=== PATIENT | male | born 1960 | race Caucasian/White ===

== ENCOUNTER 2017-09-21 21:57 | Observation (INO) | payer OTHER ==
[~2017-09-21] VITALS: Ht 177.8 cm; Wt 105.0 kg
[2017-09-21 22:20] VITALS: BP 119/80; PULSE 106; RESP 18; TEMP 98.4; O2SAT 96
--- NOTE | 2017-09-21 22:27 | PD ---
HPI Chief Complaint: dizzy Time Seen by Provider: 22:24 Travel History International Travel<30 days: Yes Contact w/Intl Traveler<30days: Yes Name of Country Traveled to: [place] Traveled to known affect area: No History of Present Illness HPI PATIENT WHILE ON PLANE HERE TO VISIT SON IN [place], FELT DIZZY AND HANDS WENT "WHITE" AND HE NEARLY PASSED OUT.... 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 PER PT HE HAD A CATH A FEW WEEKS AGO AND HAS CD WITH HIM. CURRENTLY SYMPTOMS RESOLVED EXCEPT, RT SHOULDER PRESSURE, ONGOING FOR PAST 4 HOURS, NONRAD, NONSHARP, of note patient lives in [place] but has been flying back and forth between [facility] and [place]...pt apparently had cath in [place], where he was found to have a patent stent but found to have schemic cm and possibly needs an aicd? PCP IN [place] PMHX: CHF, 20% EF, PFSH Social History Tobacco Use: No Allergies-Medications (Allergen,Severity, Reaction): Coded Allergies: No Known Allergies (Verified Allergy, Unknown, 09/22/17) Uncoded Allergies: nka (Allergy, Unknown, 07/25/03) Reported Meds & Prescriptions Reported Meds & Active Scripts Active Review of Systems Except as stated in HPI: all other systems reviewed are Neg General / Constitutional: No: Fever Eyes: No: Visual changes HENT: No: Headaches Cardiovascular: No: Chest Pain or Discomfort Respiratory: Positive: Shortness of Breath Gastrointestinal: No: Abdominal Pain Genitourinary: No: Dysuria Musculoskeletal: No: Pain Skin: No Rash Neurologic: No: Weakness Psychiatric: No: Depression Endocrine: No: Polydipsia Hematologic/Lymphatic: No: Easy Bruising Physical Exam Narrative GENERAL: SKIN: Warm and dry. HEAD: Atraumatic. Normocephalic. EYES: Pupils equal and round. No scleral icterus. No injection or drainage. ENT: No nasal bleeding or discharge. Mucous membranes pink and moist. NECK: Trachea midline. No JVD. CARDIOVASCULAR: Regular rate and rhythm. RESPIRATORY: No accessory muscle use. Clear to auscultation. Breath sounds equal bilaterally. GASTROINTESTINAL: Abdomen soft, non-tender, nondistended. MUSCULOSKELETAL: Extremities without clubbing, cyanosis, or edema. No obvious deformities. NEUROLOGICAL: Awake and alert. No obvious cranial nerve deficits. Motor grossly within normal limits. Five out of 5 muscle strength in the arms and legs. Normal speech. PSYCHIATRIC: Appropriate mood and affect; insight and judgment normal. Data Data Last Documented VS Orders Orders Complete Blood Count With Diff (09/21/17:29) Comprehensive Metabolic Panel (09/21/17:29) Troponin I (09/21/17:29) B-Type Natriuretic Peptide (09/21/17:) Prothrombin Time / Inr (Pt) (09/21/17) Act Partial Throm Time (Ptt) (09/21/17:) Lipase (09/21/17:) Chest, Single Ap (09/21/17:) Iv Access Insert/Monitor (09/21/17) Ecg Monitoring (09/21/17:) Admit Order (Ed Use Only) (09/21/17 23:20) Activity Bed Rest With Brp (09/21/17 23:20) Vital Signs (Adult) Q4H (09/21/17 23:20) Cardiac Rhythm .As Directed (09/21/17 23:20) Notify Dr: Other .PRN (09/21/17 23:20) Notify DrSilver Parameters (09/21/17 23:20) Resp Oxygen Nasal Cannula (09/21/17 ) Ckmb (Isoenzyme) Profile (09/21/17 23:20) Ckmb (Isoenzyme) Profile (09/22/17 02:20) Troponin I (09/21/17 23:20) Troponin I (09/22/17 02:20) Electrocardiogram (09/21/17 23:20) Electrocardiogram (09/22/17 02:20) ^ Obtain (09/21/17 23:20) Sodium Chlor 0.9% 1000 Ml Inj (Ns 1000 M (09/21/17 23:20) Ondansetron Inj (Zofran Inj) (09/21/17 23:30) Nitroglycerin Sl (Nitrostat Sl) (09/21/17 23:30) Aspirin (Aspirin) (09/22/17 09:00) Control Room Operator / Telemetry [id number].[id number] (09/21/17 23:20) Labs Laboratory Tests Test 09/21/17 22:45 White Blood Count 12.8 TH/MM3 Red Blood Count 5.35 MIL/MM3 Hemoglobin 16.1 GM/DL Hematocrit 48.7 % Mean Corpuscular Volume 91.1 FL Mean Corpuscular Hemoglobin 30.0 PG Mean Corpuscular Hemoglobin Concent 33.0 % Red Cell Distribution Width 13.7 % Platelet Count 226 TH/MM3 Mean Platelet Volume 8.3 FL Neutrophils (%) (Auto) 76.3 % Lymphocytes (%) (Auto) 12.2 % Monocytes (%) (Auto) 10.0 % Eosinophils (%) (Auto) 1.1 % Basophils (%) (Auto) 0.4 % Neutrophils # (Auto) 9.8 TH/MM3 Lymphocytes # (Auto) 1.6 TH/MM3 Monocytes # (Auto) 1.3 TH/MM3 Eosinophils # (Auto) 0.1 TH/MM3 Basophils # (Auto) 0.0 TH/MM3 CBC Comment DIFF FINAL Differential Comment Prothrombin Time 11.2 SEC Prothromb Time International Ratio 1.0 RATIO Activated Partial Thromboplast Time 28.7 SEC Blood Urea Nitrogen 19 MG/DL Creatinine 1.61 MG/DL Random Glucose 326 MG/DL Total Protein 8.1 GM/DL Albumin 3.8 GM/DL Calcium Level 9.5 MG/DL Alkaline Phosphatase 63 U/L Aspartate Amino Transf (AST/SGOT) 10 U/L Alanine Aminotransferase (ALT/SGPT) 19 U/L Total Bilirubin 0.7 MG/DL Sodium Level 132 MEQ/L Potassium Level 3.8 MEQ/L Chloride Level 93 MEQ/L Carbon Dioxide Level 33.1 MEQ/L Anion Gap 6 MEQ/L Estimat Glomerular Filtration Rate 44 ML/MIN Troponin I LESS THAN 0.02 NG/ML B-Type Natriuretic Peptide 126 PG/ML Lipase 121 U/L [facility] Medical Decision Making Medical Screen Exam Complete: Yes Emergency Medical Condition: Yes Medical Record Reviewed: Yes Interpretation(s) SINUS TACH, 107, LAE, NONSPEC STT CHANGES WITHOUT STEMI PATTERN Differential Diagnosis CHF EXAC V STEMI V NONSTEMI V PNA V PTX V Narrative Course on evaluation , first troponin neg, will admit to chest pain center r/o atypical cp and further cardio evaluation for possible aicd due to this ischemic cardiomyopathy Diagnosis Primary Impression: atypical cp Additional Impression: presyncope Admitting Information Admitting Physician Requests: Observation Scripts Valsartan (Diovan) 40 Mg Tab 20 MG PO BID for Prevent Heart Failure, #60 TAB Prov: Jake Mendosa MD 09/23/17 Metoprolol Tartrate (Metoprolol Tartrate) 25 Mg Tab 12.5 MG PO DAILY for Regulate Heart Beat, #30 TAB Prov: Jake Mendosa MD 09/23/17 David Cuenca MD Sep 21, 2017 22:27
--- NOTE | 2017-09-21 22:55 | RADRPT ---
EXAM DATE/TIME: 09/21/2017 22:32 [place] COMPARISON: No previous studies available for comparison. INDICATIONS : Shortness of breath. MEDICAL HISTORY : Hypertension. Diabetes mellitus type II. SURGICAL HISTORY : None. ENCOUNTER: Initial ACUITY: 1 day PAIN SCORE: 0/10 LOCATION: Bilateral chest FINDINGS: Portable AP view of the chest demonstrates a normal-sized cardiac silhouette. No effusion, consolidat ion, or pneumothorax is visualized. The bones and soft tissues demonstrate no acute abnormality. CONCLUSION: No acute cardiopulmonary abnormality is identified. Jones Dominique MD on September 21, 2017 at 22:52 Board Certified Radiologist. This report was verified electronically.
[2017-09-21 23:01] LABS: AUTOMATED NEUTROPHIL # 9.8 TH/MM3 (1.8-7.7); BASOPHIL % 0.4 % (0.0-2.0); EOSINOPHIL # 0.1 TH/MM3 (0-0.4); EOSINOPHIL % 1.1 % (0.0-4.0); HEMATOCRIT 48.7 % (39.0-51.0); HEMOGLOBIN 16.1 GM/DL (13.0-17.0); LYMPH % 12.2 % (9.0-44.0); LYMPHOCYTE # 1.6 TH/MM3 (1.0-4.8); MEAN CELL VOLUME 91.1 FL (80.0-100.0); MEAN PLATELET VOLUME 8.3 FL (7.0-11.0); MONOCYTE # 1.3 TH/MM3 (0-0.9); NEUT % 76.3 % (16.0-70.0); PLATELET COUNT 226 TH/MM3 (150-450); RED BLOOD COUNT 5.35 MIL/MM3 (4.50-5.90); RED CELL DISTRIBUTION WIDTH 13.7 % (11.6-17.2); WHITE BLOOD COUNT 12.8 TH/MM3 (4.0-11.0)
[2017-09-21 23:15] LABS: ALBUMIN 3.8 GM/DL (3.4-5.0); ALT (GPT) 19 U/L (12-78); AST (GOT) 10 U/L (15-37); BICARBONATE 33.1 MEQ/L (21.0-32.0); BLOOD UREA NITROGEN 19 MG/DL (7-18); CALCIUM 9.5 MG/DL (8.5-10.1); CHLORIDE 93 MEQ/L (98-107); CREATININE 1.61 MG/DL (0.60-1.30); GLOMERULAR FILTRATION RATE 44 ML/MIN (>89); GLUCOSE,RANDOM 326 MG/DL (74-106); LIPASE 121 U/L (73-393); PROTHROMBIN TIME - PATIENT 11.2 SEC (9.8-11.6); SODIUM (NA) 132 MEQ/L (136-145)
[2017-09-21 23:19] LABS: ALKALINE PHOSPHATASE 63 U/L (45-117); TOTAL BILIRUBIN ADULT 0.7 MG/DL (0.2-1.0); TOTAL PROTEIN 8.1 GM/DL (6.4-8.2); TROPONIN I LESS THAN 0.02 NG/ML (0.02-0.05)
[2017-09-21] MEDS ORDERED: NITROGLYCERIN 0.4 MG SL 25 TABS/BTL SL PRN (23:30)
[2017-09-21] MEDS ORDERED: ONDANSETRON HCL 4 MG/2 ML VIAL IV PUSH PRN (23:30)
[2017-09-21] MEDS: SODIUM CHLOR 0.9% 1000 ML INJ 1,000 ML IV SCH (23:32)
[2017-09-21 23:52] VITALS: O2SAT 96
[2017-09-22] VITALS (8 sets, daily range): BP systolic 93–111; BP diastolic 55–72; PULSE 83–96; RESP 16–18; TEMP 97.4–98.4; O2SAT 95–99
[2017-09-22 03:15] LABS: TROPONIN I LESS THAN 0.02 NG/ML (0.02-0.05)
[2017-09-22 05:50] LABS: TROPONIN I LESS THAN 0.02 NG/ML (0.02-0.05)
[2017-09-22] MEDS ORDERED: VALS1TAB63 PO (06:06)
[2017-09-22] MEDS ORDERED: MAGN400T2 PO (06:06)
[2017-09-22] MEDS ORDERED: FURO1TAB60 PO (06:06)
[2017-09-22] MEDS ORDERED: ASPI-516 CHEW (06:06)
[2017-09-22 08:23] LABS: BICARBONATE 30.8 MEQ/L (21.0-32.0); CALCIUM 8.4 MG/DL (8.5-10.1); CREATININE 1.14 MG/DL (0.60-1.30)
[2017-09-22] MEDS: ASPIRIN 325 MG TAB PO SCH (08:48)
[2017-09-22] MEDS: SODIUM CHLOR 0.9% 1000 ML INJ 1,000 ML IV SCH (08:49)
[2017-09-22] MEDS ORDERED: METO25TA3 PO (09:05)
--- NOTE | 2017-09-22 09:15 | EKG ---
Date Performed: 09/22/2017 Time Performed: 02:36:22 PTAGE: 57 years EKG: Sinus rhythm POSSIBLE LEFT ATRIAL ENLARGEMENT POSSIBLE LEFT VENTRICULAR HYPERTROPHY NONSPECIFIC T-WAVE ABNORMALIT Y ABNORMAL ECG Since PREVIOUS TRACING , no longer tachycardic DOCTOR: Marisela Coello Interpretating Date/Time 09/22/2017 09:14:22
--- NOTE | 2017-09-22 09:16 | EKG ---
Date Performed: 09/22/2017 Time Performed: 05:11:22 PTAGE: 57 years EKG: Sinus rhythm POSSIBLE LEFT ATRIAL ENLARGEMENT POSSIBLE LEFT VENTRICULAR HYPERTROPHY NONSPECIFIC T-WAVE ABNORMALIT Y ABNORMAL ECG Since PREVIOUS TRACING , no significant change noted DOCTOR: Marisela Coello Interpretating Date/Time 09/22/2017 09:14:35
--- NOTE | 2017-09-22 09:17 | EKG ---
Date Performed: 09/21/2017 Time Performed: 22:24:43 PTAGE: 57 years EKG: SINUS TACHYCARDIA POSSIBLE LEFT ATRIAL ENLARGEMENT NONSPECIFIC T-WAVE ABNORMALITY ABNORMAL RHYTHM ECG Since PREVIOUS TRACING , no tachycardic PREVIOUS TRACIN01/27/2003 08.39 DOCTOR: Marisela Coello Interpretating Date/Time 09/22/2017 09:15:28
--- NOTE | 2017-09-22 10:09 | HHI.HP ---
HPI Primary Care Physician Unknown Chief Complaint Near-syncope History of Present Illness This is a 57-year-old male with history of CAD, hypertension, diabetes, congestive heart failure that presents to ED stating that yesterday morning at 4 :00 he felt very dizzy in his hands turn white. [place] like he was about the passout. Denied any type of chest discomfort. Denies sensation of heart beating rapidly or irregularly. He was in [place] where he lives at the time. And decided to fly to [place] to evaluate his symptoms. While he was flying back from [place] the same symptoms occurred and he felt like he was about the passout. He decided to take a shuttle bus from [facility] to this hospital for his evaluation. He states that he had a cardiac evaluation in [place] last month. States had a cardiac catheterization that showed no blockages and stated that the stent was open. He also states that was discovered that he had an EF of 20% and they're contemplating an AICD. He states that his insurance would not cover that and was discharged on new medication. He has not followed up with development rep since. Review of Systems General: Patient denies fevers, chills recent, and recent travel HEENT: Patient denies headache, sore throat, difficulty swallowing. Cardiovascular: Denies having chest discomfort as mentioned above. Denies sensation of heart beating rapidly or irregularly. [place] like he was about the passout but denies syncope. He was diaphoretic. Respiratory: Denies shortness of breath or inspirational chest discomfort. Denies coughing wheezing or hemoptysis. GI: Patient denies nausea, vomiting, diarrhea, abdominal pain, bloody stools. Musculoskeletal: Patient denies joint pain or edema. Denies calf pain or edema. Neurovascular: Patient denies numbness, tingling, weakness in extremities. Denies headache. Endocrine: Denies polyuria and polydipsia. Hematologic: Denies easy bruising. Skin: Denies rash or itching. Past Family Social History Allergies: Coded Allergies: No Known Allergies (Verified Allergy, Unknown, 09/22/17) Uncoded Allergies: nka (Allergy, Unknown, 07/25/03) Past Medical History Hypertension CAD with stent in 2002 of the LAD, diabetes however no medication for 2 years states that it was controlled, hyperlipidemia but stopped medication secondary to myalgias, congestive heart failure. Past Surgical History Multiple cardiac catheterizations. Stent in 2002. Reported Medications Reported Meds & Active Scripts Active Reported Metoprolol Tartrate 25 Mg Tab 25 Mg PO BID Aspirin 81 Mg Chew 81 Mg CHEW DAILY Lasix (Furosemide) 40 Mg Tab 40 Mg PO DAILY Valsartan 40 Mg Tab 40 Mg PO BID Magnesium Oxide 400 Mg Tab 400 Mg PO DAILY Active Ordered Medications Current Medications Medications (Trade) Dose Ordered Sig/Anastacio Route Start Time Stop Time Status Last Admin Sodium Chloride 1,000 ml @ 100 mls/hr Q10H IV 09/21/17 23:20 09/22/17 08:49 (Zofran Inj) 4 mg Q6H PRN IV PUSH 09/21/17 23:30 09/21/17 23:31 (Nitrostat Sl) 0.4 mg Q5M PRN SL 09/21/17 23:30 (Aspirin) 325 mg DAILY PO 09/22/17 09:00 09/22/17 08:48 (Pneumovax-23 Inj) 25 mcg ONCE ONCE IM 09/23/17 10:00 09/23/17 10:01 (Flu (Quadrivalent) Vaccine Inj) 0.5 ml ONCE ONCE IM 09/23/17 10:00 09/23/17 10:01 Family History There is family history of CAD. Social History Denies tobacco abuse. Denies alcohol use. Denies illicit drug use. Physical Exam Vital Signs Vital Signs Date Time Temp Pulse Resp B/P (MAP) Pulse Ox O2 Delivery O2 Flow Rate FiO2 09/22/17 08:30 97.9 96 18 94/56 (69) 95 09/22/17 06:36 09/22/17 03:29 96 16 111/72 (85) 99 Room Air 09/21/17 23:52 96 09/21/17 23:47 95 18 96 Room Air 09/21/17 22:20 98.4 106 18 119/80 (93) 96 Physical Exam GENERAL: This is a well-nourished, well-developed patient, in no apparent distress. Patient speaks in clear complete sentences. Patient is pleasant. HEENT: Head is atraumatic and normocephalic. Neck is supple without lymphadenopathy and trachea is midline. No JVD or carotid bruits. CARDIOVASCULAR: Regular rate and rhythm without murmurs, gallops, or rubs. RESPIRATORY: Clear to auscultation. Breath sounds equal bilaterally. No wheezes , rales, or rhonchi. Chest wall is nontender. No use of accessory muscles. GASTROINTESTINAL: Abdomen is nontender, nondistended. Abdomen soft. No obvious pulsatile mass or bruit. No CVA tenderness. Strong femoral pulses bilaterally. Normal bowel sounds in all quadrants. MUSCULOSKELETAL: Patient is moving upper and lower extremities freely. No calf tenderness or edema, no Homans sign. Strong pulses in upper and lower extremities. NEUROLOGICAL: Patient is alert and oriented. Cranial nerves 2-12 are grossly intact. No focal deficits and speech is clear. SKIN: No rash and turgor is normal. Laboratory Laboratory Tests Test 09/21/17 22:45 09/22/17 02:32 09/22/17 05:00 09/22/17 07:30 White Blood Count 12.8 Red Blood Count 5.35 Hemoglobin 16.1 Hematocrit 48.7 Mean Corpuscular Volume 91.1 Mean Corpuscular Hemoglobin 30.0 Mean Corpuscular Hemoglobin Concent 33.0 Red Cell Distribution Width 13.7 Platelet Count 226 Mean Platelet Volume 8.3 Neutrophils (%) (Auto) 76.3 Lymphocytes (%) (Auto) 12.2 Monocytes (%) (Auto) 10.0 Eosinophils (%) (Auto) 1.1 Basophils (%) (Auto) 0.4 Neutrophils # (Auto) 9.8 Lymphocytes # (Auto) 1.6 Monocytes # (Auto) 1.3 Eosinophils # (Auto) 0.1 Basophils # (Auto) 0.0 CBC Comment DIFF FINAL Differential Comment Prothrombin Time 11.2 Prothromb Time International Ratio 1.0 Activated Partial Thromboplast Time 28.7 Blood Urea Nitrogen 19 17 Creatinine 1.61 1.14 Random Glucose 326 254 Total Protein 8.1 Albumin 3.8 Calcium Level 9.5 8.4 Alkaline Phosphatase 63 Aspartate Amino Transf (AST/SGOT) 10 Alanine Aminotransferase (ALT/SGPT) 19 Total Bilirubin 0.7 Sodium Level 132 134 Potassium Level 3.8 3.7 Chloride Level 93 97 Carbon Dioxide Level 33.1 30.8 Anion Gap 6 6 Estimat Glomerular Filtration Rate 44 66 Troponin I LESS THAN 0.02 LESS THAN 0.02 LESS THAN 0.02 B-Type Natriuretic Peptide 126 Lipase 121 Total Creatine Kinase 34 29 Result Diagram: 09/21/17 2245 09/22/17 0730 Imaging Last 48 hours Impressions Chest X-Ray 09/21/17 7692 Signed Impressions: Service Date/Time: Thursday, September 21, 2017 22:32 - CONCLUSION: No acute cardiopulmonary abnormality is identified. Jones Dominique MD Course EKGs are sinus rhythm left circumflex T-wave changes. Caprini VTE Risk Assessment Caprini VTE Risk Assessment: No/Low Risk (score <= 1) Caprini Risk Assessment Model Point Value = 1 Point Value = 2 Point Value = 3 Point Value = 5 Age 41-60 Minor surgery BMI > 25 kg/m2 Swollen legs Varicose veins or History of unexplained or recurrent spontaneous Oral contraceptives or hormone replacement Sepsis (< 1 month) Serious lung disease, including pneumonia (< 1 month) Abnormal pulmonary function Acute myocardial infarction Congestive heart failure (< 1 month) History of inflammatory bowel disease Medical patient at bed rest Age 61-74 Arthroscopic surgery Major open surgery (> 45 min) Laparoscopic surgery (> 45 min) Malignancy Confined to bed (> 72 hours) Immobilizing plaster cast Central venous access Age >= 75 History of VTE Family history of VTE Factor V Leiden Prothrombin [id number] Lupus anticoagulant Anticardiolipin antibodies Elevated serum homocysteine Heparin-induced thrombocytopenia Other congenital or acquired thrombophilia Stroke (< 1 month) Elective arthroplasty Hip, pelvis, or leg fracture Acute spinal cord injury (< 1 month) Prophylaxis Regimen Total Risk Factor Score Risk Level Prophylaxis Regimen 0-1 Low Early ambulation 2 Moderate Order ONE of the following: *Sequential Compression Device (SCD) *Heparin 5000 units SQ BID 3-4 Higher Order ONE of the following medications: *Heparin 5000 units SQ TID *Enoxaparin/Lovenox 40 mg SQ daily (WT < 150 kg, CrCl > 30 mL/min) *Enoxaparin/Lovenox 30 mg SQ daily (WT < 150 kg, CrCl > 10-29 mL/min) *Enoxaparin/Lovenox 30 mg SQ BID (WT < 150 kg, CrCl > 30 mL/min) AND/OR *Sequential Compression Device (SCD) 5 or more Highest Order ONE of the following medications: *Heparin 5000 units SQ TID (Preferred with Epidurals) *Enoxaparin/Lovenox 40 mg SQ daily (WT < 150 kg, CrCl > 30 mL/min) *Enoxaparin/Lovenox 30 mg SQ daily (WT < 150 kg, CrCl > 10-29 mL/min) *Enoxaparin/Lovenox 30 mg SQ BID (WT < 150 kg, CrCl > 30 mL/min) AND *Sequential Compression Device (SCD) Assessment and Plan Assessment and Plan * Near-syncope: Patient denies chest discomfort. Had serial cardiac enzymes and EKGs for ruling out purposes and was seen by Dr. Coello cardiology in the chest pain center. I discussed the patient with Dr. Jim Lazaro for consultation as patient states he has an EF of 20% and was being evaluated for AICD while in [place]. Dr. Sebastian has requested a consultation to Dr. Otero for AICD evaluation. Patient will be admitted to hospitalist. I spoke with Dr. Ledesma has graciously agreed to accept this patient. * Hypertension: Continue current medication. * CAD: Patient had stent in 2002. At heart catheterization reportedly last month and patient states that there are no blockages. We are waiting cardiac catheterization report and 2-D echo report. * Diabetes: Patient states she's had no medication for 2 years as he has been diet controlled. Patient will have sliding scale insulin coverage. * Hyperlipidemia: Patient states that he did not tolerate statins secondary to myalgias. Patient is agreeable to this plan. He is stable at this time. Cedrick Rubin Sep 22, 2017 10:09
[2017-09-22] MEDS ORDERED: DEXTROSE 50% IN WATER 50 ML VIAL(D50) IV PUSH PRN (10:30)
[2017-09-22] MEDS ORDERED: GLUCAGON 1 MG/ML VIAL OTHER PRN (10:30)
--- NOTE | 2017-09-22 10:59 | HHI.PR ---
Subjective Remarks in no acute distress. no chest pain or sob. Objective Vitals Vital Signs Date Time Temp Pulse Resp B/P (MAP) Pulse Ox O2 Delivery O2 Flow Rate FiO2 09/22/17 10:14 96 21 09/22/17 08:30 97.9 96 18 94/56 (69) 95 09/22/17 06:36 09/22/17 03:29 96 16 111/72 (85) 99 Room Air 09/21/17 23:52 96 09/21/17 23:47 95 18 96 Room Air 09/21/17 22:20 98.4 106 18 119/80 (93) 96 I/O 09/21/17 09/21/17 09/21/17 09/22/17 09/22/17 09/22/17 07:00 15:00 23:00 07:00 15:00 23:00 Intake Total 1000 ml 50 ml Balance 1000 ml 50 ml Intake Oral 50 ml IV Total 1000 ml Result Diagram: 09/21/17224409/22/17729 Imaging Last Impressions Chest X-Ray 09/21/172228 Signed Impressions: Service Date/Time: Thursday, September 21, 2017 22:32 - CONCLUSION: No acute cardiopulmonary abnormality is identified. Jones Dominique MD Objective Remarks GENERAL: This is a well-nourished, well-developed patient, in no apparent distress. CARDIOVASCULAR: Regular rate and regular rhythm without murmurs, gallops, or rubs. RESPIRATORY: Clear to auscultation. Breath sounds equal bilaterally. No wheezes , rales, or rhonchi. GASTROINTESTINAL: Abdomen soft, non-tender, nondistended. Normal, active bowel sounds MUSCULOSKELETAL: Extremities without clubbing, cyanosis, or edema. NEURO: Alert & Oriented x4 to person, place, time, situation. Moves all ext x4 Medications and IVs Current Medications Sodium Chloride 1,000 ml @ 100 mls/hr Q10H IV Last administered on 09/22/17 08:49; Start 09/21/17 at 23:20 Ondansetron HCl (Zofran Inj) 4 mg Q6H PRN IV PUSH NAUSEA Last administered on 09/21/17 23:31; Start 09/21/17 at 23:30 Nitroglycerin (Nitrostat Sl) 0.4 mg Q5M PRN SL CHEST PAIN; Start 09/21/17 at 23 :30 Aspirin (Aspirin) 325 mg DAILY PO Last administered on 09/22/17t 08:48; Start 09/22/17 at 09:00 Pneumococcal Polyvalent Vaccine (Pneumovax-23 Inj) 25 mcg ONCE ONCE IM ; Start 09/23/17 at 10:00; Stop 09/23/17 at 10:01 Influenza Virus Vaccine (Flu (Quadrivalent) Vaccine Inj) 0.5 ml ONCE ONCE IM ; Start 09/23/17 at 10:00; Stop 09/23/17 at 10:01 Aspirin (Aspirin Chew) 81 mg DAILY CHEW ; Start 09/23/17 at 09:00 Furosemide (Lasix) 40 mg DAILY PO ; Start 09/22/17 at 10:15 Magnesium Oxide (Mag-Ox) 400 mg DAILY PO ; Start 09/22/17 at 10:15 Valsartan (Diovan) 40 mg BID PO ; Start 09/22/17 at 10:15 Insulin Aspart (NovoLOG SUPPLEMENTAL SCALE) 1 ACHS SLIDING SCALE SQ ; Start at 12:00 Dextrose (D50w (Vial) Inj) 50 ml UNSCH PRN IV PUSH HYPOGLYCEMIA - SEE COMMENTS ; Start 09/22/17 at 10:30 Glucagon (Glucagon Inj) 1 mg UNSCH PRN OTHER HYPOGLYCEMIA-SEE COMMENTS; Start 09/22/17 at 10:30 A/P Assessment and Plan A/P - near-syncope with history of systolic CHF cardiology consulted and plan for possible AICD placement. -CAD- s/p stent placement continue aspirin and Valsartan. metoprolol on hold due to low-normal BP's. awaiting the report of cardiac cath from [place]. -diabetes mellitus; on accu-check with SSI -hypertension; resumed Valsartan- BB on hold due to low-normal BP's -DVT prophylaxis- pending cardiology evaluation. Melody Bridges MD Sep 22, 2017 10:59
[2017-09-22] MEDS: INSULIN ASPART SUPPLEMENTAL SCALE SQ SCH ×3 (12:00→21:11)
[2017-09-22] MEDS: FUROSEMIDE 40 MG TAB PO SCH (12:19)
[2017-09-22] MEDS: MAGNESIUM OXIDE 400 MG TAB PO SCH (12:19)
[2017-09-22] MEDS: VALSARTAN 40 MG TAB PO SCH ×2 (12:20→21:00)
--- NOTE | 2017-09-22 13:55 | EKG ---
Date Performed: 09/22/2017 Time Performed: 09:22:41 PTAGE: 57 years EKG: Sinus rhythm POSSIBLE LEFT ATRIAL ENLARGEMENT POSSIBLE LEFT VENTRICULAR HYPERTROPHY NONSPECIFIC T-WAVE ABNORMALIT Y ABNORMAL ECG Since PREVIOUS TRACING , no significant change noted PREVIOUS TRACIN09/22/2017 05.11 DOCTOR: Marisela Coello Interpretating Date/Time 09/22/2017 13:55:30
--- NOTE | 2017-09-22 17:19 | MB ---
cc: NICHO RAY M.D. DATE OF CONSULTATION 09/22/2017 REASON FOR CONSULTATION Syncope, congestive heart failure. HISTORY OF THE PRESENT ILLNESS Mr. Connelly is a 57-year-old gentleman with history of coronary artery disease. He had PTCA plus stent in 2002. He was living in [place] for the past 2 years. He was having symptom of heart failure. He went to [place] a month to a month and a half ago where heart failure medication was initiated. The gentleman cannot take an VICKY and angiotensin-receptor raman. He was prescribed Valsartan. He stopped taking the medication. Because of side effect. His blood pressure is 90. In the past couple of days he was having palpitation and dizziness. He experienced a syncopal episode and went to the emergency room where he was evaluated. The chart was reviewed, the patient was evaluated. I did have a long conversation with him. ALLERGIES None. SOCIAL HISTORY The gentleman denies smoking and drinking. FAMILY HISTORY Noncontributory to his current medical condition. MEDICATIONS At home he was on: 1. Metoprolol 25 twice a day. 2. Aspirin 81 mg a day. 3. Lasix 40 mg a day. 4. Valsartan 40 mg a day. REVIEW OF SYSTEMS He refers no chest pain. No chest discomfort. No vomiting. No fever. PHYSICAL EXAMINATION GENERAL: Alert, fully oriented. VITAL SIGNS: His blood pressure 94/56, pulse 90, respiratory rate 18. LUNGS: Ventilated. CARDIOVASCULAR: S1-S2, no gallop. No murmur. ABDOMEN: Obese. No mass. No bruit. EXTREMITIES: No edema. Electrocardiogram sinus rhythm, diffuse ST changes. LABORATORY DATA Hemoglobin is 16.1, white blood cell 12.8. Potassium 3.7, creatinine is 1.14. Troponin less than 0.02. INR 1.0. ASSESSMENT AND RECOMMENDATIONS Mr. Connelly has congestive heart failure, cardiomyopathy, ischemic cardiomyopathy. He has two previous stents by Dr. Clements in 2002. Apparently a recent nuclear stress test in [place] was negative. We are requesting the records. Because the gentleman has an ejection of 20, ischemic cardiomyopathy, palpitations, syncope, malignant arrhythmia suspected. My recommendation at this point is electrophysiology study and defibrillator implantation for sudden prevention. I am not sure how long the gentleman was having heart failure. By his own account he was in the hospital around a month and half ago in [place]. He stated since 2007 they were telling him his heart is weak, he will need a defibrillator. Last cath by Dr. Clements in 2002 indicates 40% of ejection fraction. The gentleman's medication cannot be up titrated due to blood pressure and side effect. The risks, the nature and the benefit of the procedure are clearly stated to him. The risks include pneumothorax, cardiac perforation, stroke and even . He understood and agreed to proceed. Procedure will be performed during hospitalization. MD KORI Danielle/KK /3:35 PM /5:01 PM
[2017-09-23] VITALS (14 sets, daily range): BP systolic 92–101; BP diastolic 59–72; PULSE 75–112; RESP 18–20; TEMP 97.6–98.3; O2SAT 92–97
[2017-09-23] MEDS: SODIUM CHLOR 0.9% 1000 ML INJ 1,000 ML IV SCH ×2 (03:59→05:20)
[2017-09-23] MEDS: ASPIRIN 325 MG TAB PO SCH (08:34)
[2017-09-23] MEDS: VALSARTAN 40 MG TAB PO SCH ×2 (08:35→21:00)
[2017-09-23] MEDS: INSULIN ASPART SUPPLEMENTAL SCALE SQ SCH ×2 (08:47→21:00)
[2017-09-23] MEDS: MAGNESIUM OXIDE 400 MG TAB PO SCH (08:47)
[2017-09-23] MEDS: FUROSEMIDE 40 MG TAB PO SCH (08:47)
[2017-09-23] MEDS ORDERED: ASPIRIN 81 MG CHEW TAB CHEW SCH (09:00)
[2017-09-23] MEDS ORDERED: PNEUMOCOCCAL POLYVALENT INJ 25 MCG/0.5 ML SYR IM ONE (10:00)
[2017-09-23] MEDS ORDERED: INFLUENZA VIRUS VACCINE (QUADRIVALENT) 0.5 ML SYR IM ONE (10:00)
[2017-09-23] MEDS ORDERED: METOPROLOL TARTRATE 5 MG/5 ML VIAL IV PUSH ONE (12:00)
[2017-09-23] MEDS ORDERED: PHENYLEPH/NS 1000 MCG/10 ML SYR IV ONE (12:00)
[2017-09-23] MEDS ORDERED: PROPOFOL 200 MG/20 ML AMP IV ONE (12:00)
[2017-09-23] MEDS ORDERED: MIDAZOLAM HCL 2 MG/2 ML VIAL IV ONE (12:00)
[2017-09-23] MEDS ORDERED: SODIUM CHLORIDE 0.9% 20 ML VIAL IV ONE (12:00)
[2017-09-23] MEDS ORDERED: PILL SPLITTER OTHER PRN (13:15)
--- NOTE | 2017-09-23 14:47 | HHI.PR ---
Subjective Remarks Follow-up syncope. Patient has no new complaints. BP still borderline low since he was started on valsartan discussed with RN Objective Vitals Vital Signs Date Time Temp Pulse Resp B/P (MAP) Pulse Ox O2 Delivery O2 Flow Rate FiO2 09/23/17 14:43 97.8 89 20 100/59 (73) 97 09/23/17 11:22 98.3 86 20 92/60 (71) 97 09/23/17 09:25 84 09/23/17 07:26 98.2 89 20 95/61 (72) 95 09/23/17 05:08 84 09/23/17 05:08 75 09/23/17 03:16 97.6 82 18 94/61 (72) 95 09/22/17 23:37 97.6 91 18 96/63 (74) 97 09/22/17 21:00 98.4 83 18 93/55 (68) 97 09/22/17 16:02 98.3 87 18 93/57 (69) 95 I/O 09/22/17 09/22/17 09/22/17 09/23/17 09/23/17 09/23/17 07:00 15:00 23:00 07:00 15:00 23:00 Intake Total 1000 ml 50 ml 240 ml 980 ml Output Total 2250 ml Balance 1000 ml 50 ml 240 ml -1270 ml Intake Oral 50 ml 240 ml 980 ml IV Total 1000 ml Output Urine Total 2250 ml # Voids 4 # Bowel Movements 0 Result Diagram: 09/21/17 2245 09/22/17 0730 Imaging Last Impressions Chest X-Ray 09/21/172228 Signed Impressions: Service Date/Time: Thursday, September 21, 2017 22:32 - CONCLUSION: No acute cardiopulmonary abnormality is identified. Jones Dominique MD Objective Remarks GENERAL: This is a well-nourished, well-developed patient, in no apparent distress. SKIN: No rash or lesion CARDIOVASCULAR: Regular rate and regular rhythm without murmurs, gallops, or rubs. RESPIRATORY: Clear to auscultation. Breath sounds equal bilaterally. No wheezes , rales, or rhonchi. GASTROINTESTINAL: Abdomen soft, non-tender, nondistended. Normal, active bowel sounds MUSCULOSKELETAL: Extremities without clubbing, cyanosis, or edema. NEURO: Alert & Oriented x4 to person, place, time, situation. Moves all ext x4 A/P Problem List: (1) Syncope ICD Code: R55 - Syncope and collapse Assessment and Plan Near-syncope with history of systolic CHF/CMP with inability to uptitrate medications secondary to low BP. Continue Lasix, losartan and metoprolol with hold parameters cardiology consulted and plan for possible EPS/AICD placement for secondary prevention. CAD- s/p stent placement continue aspirin and Valsartan. Restart metoprolol. awaiting the report of cardiac cath from [place]. Diabetes mellitus; on accu-check with SSI Hypertension; decrease valsartan to 20 mg twice a day. Continue to monitor DVT prophylaxis-we will need oncological prophylaxis status post EPS/AICD Discharge Planning Discharge when cleared by cardiology Jake Mendosa MD Sep 23, 2017 14:47
[2017-09-23] MEDS ORDERED: VANCOMYCIN 500 MG VIAL ONE (15:42)
[2017-09-23] MEDS ORDERED: LIDOCAINE HCL 2% 50 ML VIAL ONE (15:43)
[2017-09-23] MEDS ORDERED: VANCOMYCIN HCL 1000 MG VIAL ONE (15:43)
[2017-09-23] MEDS ORDERED: ceFAZolin INJ 1,000 MG VIAL ONE (15:45)
[2017-09-23] MEDS ORDERED: ISOPROTERENOL HCL 1 MG/5 ML AMP ONE (16:11)
[2017-09-23] MEDS ORDERED: DIOV40TA PO (16:59)
[2017-09-23] MEDS ORDERED: METO25TA3 PO (16:59)
--- NOTE | 2017-09-23 16:59 | HHI.DCPOC ---
Discharge Care Plan Diagnosis: (1) Syncope Your Health Problems Are: Difficulty with ADL Exercise Tolerance Goals to Promote Your Health * To prevent worsening of your condition and complications * To maintain your health at the optimal level Directions to Meet Your Goals Take your medications as prescribed Follow your dietary instruction Follow activity as directed Keep your appointments as scheduled Take your immunizations and boosters as scheduled If your symptoms worsen call your PCP, if no PCP go to Urgent Care Center or Emergency Room Smoking is Dangerous to Your Health. Avoid second hand smoke Call the 24-hour hour crisis hotline for domestic abuse at Jake Mendosa MD Sep 23, 2017 16:59
--- NOTE | 2017-09-23 17:02 | CATHPROC ---
[place] HIS Report Study Information Study Number Scheduled Start Study Start [id number] 09/23/2017 Sep 23 2017 11:49AM Referring Institution Admit Source Facility Department 1 Other [facility] - Barrel Inspector Physician and Clinical Staff Initial Frederick Deshpande Warehouse Technician Carlos Bro,RT(R) Other Anesthesia, RAILROAD TRACK INSPECTOR Recorder Monika Love,DELGADORMeño Scrub Lilli Gibson,RT(R) TECH2 Equipment Time Machine Long Goods Helper Description Size Mfg Part Number Used/Scraped [id number] 11:53 [employer] PACK, CCL CUSTOM * Used *[id number] 11:53 [employer] Asset PACER GÓMEZ, LIMB * 2530 *[id number] Used [id number] 11:53 [employer] BLANKET,WARM AIR CCL * Used *[id number] 16:03 [employer] MED[employer] CATHETER, JSN, QUAD FR 5 Used *[id number] 16:03 [employer] MEDICAL CATHETER, JSN, QUAD FR 5 Used *[id number] 16:03 [employer] MEDICAL CATHETER, JSN, QUAD FR 5 Used *[id number] 16:03 [employer] MEDICAL CATHETER, JSN, QUAD FR 5 Used *[id number] 16:02 [employer] MED[employer] SHEATH, EPS, FR5 FAST CATH FR 5 Used *[id number] 16:02 [employer] MED[employer] SHEATH, EPS, FR5 FAST CATH FR 5 Used *[id number] 16:02 [employer] MED[employer] SHEATH, EPS, FR5 FAST CATH FR 5 Used *[id number] 16:02 [employer] MED[employer] SHEATH, EPS, FR6 FAST CATH FR 6 Used *[id number] 16:49 [employer] MEDTRONIC MONITOR, PACEMAKER\ICD 93572T Used History: Current Medications Medication Dosage/Unit Route Frequency Last Date/Time Taken Beta Molina ASA History: Allergies Allergy Reaction No Known Allergies nka History: Risk Factors Hypertension Dyslipidemia Previous Heart Failure Yes Yes Yes Prior PCI Yes Diabetes Diabetes Therapy Yes Insulin History: Symptoms/Diagnosis Selection Items Palpitations Syncope Labs Hgb (g/dl) Hct (%) RBC (MIL/MM3) WBC (l/cumm) Platelets (thousands) 11.60-17.00 35.00-51.00 4.00-5.90 4.00-11.00 150.00-450.00 16.1 48.7 5.3 12.8 226 Glucose (mg/dl) BUN (mg/dl) Creatinine (mg/dl) BUN:Creatinine (1:x) 74.00-106.00 7.00-18.00 0.50-1.30 10.00-20.00 254 6 1.1 5.5 Na (meq/l) K (meq/l) Cl (meq/l) CO2 (mmol/L) Ca (mg/dl) 136.00-145.00 3.50-5.10 98.00-107.00 21.00-32.00 8.50-10.10 134 3.7 97 30.8 8.4 INR (PTT:PT) 0.90-1.10 1 Medication Medication Total Dose (Bolus/Oral) Medication Total Dosage/Unit 1% XYLOCAINE 20 mL Medications (Bolus/Oral) Medication Time Given Dosage/Unit Administered By Reason 1% XYLOCAINE 09/23/2017 4:33:59 PM 20 mL Frederick Oviedo For pain 20 mL 1% XYLOCAINE given in lab by Frederick Oviedo in Right Groin via Subcutaneous. Ordered by Eunice Oviedo. Reason: For pain. Medication (Drip) Medication Time Given Dosage/Unit Concentration/Unit Diluent (ml) Solution ANCEF 09/23/2017 3:59:00 PM 2 g 2 g ANCEF given in lab by Anesthesia, RAILROAD TRACK INSPECTOR in Right Antecubital via Peripheral IV. Ordered by Frederick Oviedo. Reason: As per physicians verbal order. ISUPREL 09/23/2017 4:52:00 PM 4 mcg/min 1 mg 250 NaCl .9 4 mcg/min ISUPREL given in lab by Frederick Oviedo in Right Antecubital via Peripheral IV. Pump/Drip Noe w = 60 ml/hr using NaCl .9 with a concentration of 1 mg in 250 ml. Ordered by Frederick Oviedo. Reason: As per physicians verbal order. IV Solutions 09/23/2017 4:00:27 PM 0 mL (IV) NaCl .9 IV Solutions given in lab by Anesthesia, RAILROAD TRACK INSPECTOR in Left Antecubital via Peripheral IV. Pump/Drip Flow = 50 ml/hr using NaCl .9. Ordered by Frederick Oviedo. Reason: As per physicians verbal order. IV Solutions 09/23/2017 4:00:49 PM 0 mL (IV) NaCl .9 IV Solutions given in lab by Anesthesia, RAILROAD TRACK INSPECTOR in Right Antecubital via Peripheral IV. Pump/Drip Flow = 50 ml/hr using NaCl .9. Ordered by Frederick Oviedo. Reason: As per physicians verbal order. VANCOMYCIN DRIP 09/23/2017 3:54:00 PM 1 g 1 g VANCOMYCIN DRIP given in lab by Anesthesia, RAILROAD TRACK INSPECTOR in Right Antecubital via Peripheral IV. Ordered by Frederick Oviedo. Reason: As per physicians verbal order. Initial Case Assessment Cardiovascular HR NIBP Chest Pain 86 103/68 0 Edema Present Skin color Skin None Normal Warm Dry Neurological State Oriented to time-place- Alert Moves all extremities person Respiration - General Respiration Rate SpO2 (%) (B/min) 20 95 Final Case Assessment Cardiovascular HR NIBP 94 82/58 Neurological State Comment: sedated Respiration - General Respiration Rate SpO2 (%) (B/min) 20 96 Chronological Log Time Study Chronological Log 15:38:49 Patient arrived via Bed. 15:38:51 Patient Name, D.O.B, / Armband Verified By R.N. 15:38:53 Anesthesia at bedside. Assumes care of patient.Hazel RAILROAD TRACK INSPECTOR 15:38:56 Consent signed by the physician and the patient and verified by the Barrel Inspector staff. 15:38:58 Pre-op and post- op instructions given; patient acknowledges understanding of instructions. 1 g VANCOMYCIN DRIP given in lab by Anesthesia, RAILROAD TRACK INSPECTOR in Right Antecubital via Peripheral IV. Or dered by Ivelisse, 15:54:00 Frederick. Reason: As per physicians verbal order. 2 g ANCEF given in lab by Anesthesia, RAILROAD TRACK INSPECTOR in Right Antecubital via Peripheral IV. Ordered by Frederick Guerra. Reason: 15:59:00 As per physicians verbal order. 15:59:06 Verbal Stimulation=3 Physical Stimulation=3 Airway=3 Respiration=2 TOTAL=10. (0=absent, 1=l imited, 2=present) 15:59:31 Presedation assessment performed by Barrel Inspector RN. 15:59:33 Patient has been NPO for More than 6Hrs. 15:59:35 Skin Breakdown- none 15:59:43 Patient Warmer Placed on the Table. 15:59:46 Disposable Defibrillator Pads Placed On Patient. 15:59:48 Eboni Prominences Protected 15:59:51 A # 20 IV was noted in the Antecubital (left). Grade = ~GRADE~ 16:00:18 A # 20 IV was noted in the Antecubital (right). Grade = ~GRADE~ IV Solutions given in lab by Anesthesia, RAILROAD TRACK INSPECTOR in Left Antecubital via Peripheral IV. Pump/Drip Flow = 50 ml/hr using 16:00:27 NaCl .9. Ordered by Frederick Oviedo. Reason: As per physicians verbal order. IV Solutions given in lab by Anesthesia, RAILROAD TRACK INSPECTOR in Right Antecubital via Peripheral IV. Pump/Drip Flow = 50 ml/hr using 16:00:49 NaCl .9. Ordered by Frederick Oviedo. Reason: As per physicians verbal order. 16:01:13 History and physical on the chart or being dictated. Assessment: Initial Case, HR=86 BPM, BUIP=791/68 mmhg, Chest Pain=0, Edema=None, Color=Normal, Skin = Warm, Dry 16:01:16 Neurological: State=Alert, Ox3, PARSONS Respiration: Resp=20 B/min, SpO2=95 % 16:01:43 Table restraints applied according to hospital policy 16:01:47 Left Upper Chest Prepped Times Two. 16:01:50 Right groin prepped with 2% chlorhexidine, and draped after a 3 min. waiting time. 16:01:53 Left groin prepped with 2% chlorhexidine, and draped after a 3 min. waiting time. 16:06:00 MD notified ready. 16:13:00 MD responded 16:27:42 Reference ECG taken 16:33:06 Immediate Presedation assesment performed by physician. Time Out. Correct patient, procedure, procedure equipment, site and side verified with physicia n present. Time 16:33:09 concurred by MD, individual staff and RAILROAD TRACK INSPECTOR. Time Out #2 - Consents verified, patient in correct position, all results are labled and displa yed, safety precautions 16:33:12 taken, antibiotics administered. Time out concurred by MD, individual staff and RAILROAD TRACK INSPECTOR in procedu re 16:33:15 Case Start 20 mL 1% XYLOCAINE given in lab by Frederick Oviedo in Right Groin via Subcutaneous. Ordered by Frederick Chang. 16:33:59 Reason: For pain. 16:34:14 Vascular access was obtained in the Fem Vein (right). 16:34:20 Vascular access was obtained in the Fem Vein (right). 16:34:21 Vascular access was obtained in the Fem Vein (right). 16:34:21 Vascular access was obtained in the Fem Vein (right). 16:34:33 A SHEATH, EPS, FR6 FAST CATH FR 6 was advanced into the Fem Vein (right) using the Percutan eous technique. 16:34:40 A SHEATH, EPS, FR5 FAST CATH FR 5 was advanced into the Fem Vein (right) using the Percutan eous technique. 16:34:48 A SHEATH, EPS, FR5 FAST CATH FR 5 was advanced into the Fem Vein (right) using the Percuta neous technique. 16:34:56 A SHEATH, EPS, FR5 FAST CATH FR 5 was advanced into the Fem Vein (right) using the Percuta neous technique. A CATHETER, JSN, QUAD FR 5 was advanced vis Fem Vein (right) and placed in the HRA. Placement was visually 16:35:06 confirmed under fluoroscopy. A CATHETER, JSN, QUAD FR 5 was advanced vis Fem Vein (right) and placed in the HIS. Placement was visually 16:35:16 confirmed under fluoroscopy. A CATHETER, JSN, QUAD FR 5 was advanced vis Fem Vein (right) and placed in the CS. Placement w as visually 16:35:24 confirmed under fluoroscopy. A CATHETER, JSN, QUAD FR 5 was advanced vis Fem Vein (right) and placed in the RVA. Placement was visually 16:35:33 confirmed under fluoroscopy. 16:35:50 EP study begun. 4 mcg/min ISUPREL given in lab by Frederick Oviedo in Right Antecubital via Peripheral IV. Pump/D rip Flow = 60 ml/hr 16:52:00 using NaCl .9 with a concentration of 1 mg in 250 ml. Ordered by Frederick Oviedo. Reason: As per physicians verbal order. 16:58:25 Isuprel gtt turned off. 16:58:52 All quads removed. 16:59:08 EP Study complete. 16:59:39 EP Procedure was performed. Assessment: Final Case, HR=94 BPM, NIBP=82/58 mmhg 16:59:56 Neurological: Comment=sedated Respiration: Resp=20 B/min, SpO2=96 % 17:00:31 Case End 17:00:59 No case complications noted. 17:01:08 Cine recording checked. 17:01:20 Initial procedure has been completed. Beginning additional procedure. End Study - Contrast Media Used In Study Contrast Total Opened (mL) Total Used (mL) Total Wasted (mL) Unspecified 0 0 0 End Study - Maximum Contrast Load Max Contrast Load (mL) 477.3 End Study - Radiation Exposure Fluoro Time (minutes) 1.3 End Study - Patient Disposition Complications Transferred To Interventional Outcome No Telemetry Bed successful
[2017-09-23] MEDS ORDERED: PROPOFOL 200 MG/20 ML AMP ONE (17:10)
--- NOTE | 2017-09-23 17:52 | PD.CARD ---
SINGLE CHAMBER DEFIB IMPLANT PROCEDURE DATE: Sep 23, 2017 NYHA Classification: Class II (Mild) Prevention: Primary Single Chamber Defib Implant PROCEDURE: Single chamber defibrillator implantation and device testing. INDICATIONS: Mr. Connelly is a 57 -year-old male with hx of congestive heart failure, ischemic cardiomyopathy, ejection fraction 20%, on optimal medical management, since 2007 there were documentation of low EF, who undergo defibrillator implantation for sudden primary prevention. The risks, the nature and the benefit of the procedure are clearly stated to him . Risks include pneumothorax, cardiac perforation, stroke and even . He understood and agreed to proceed. PROCEDURE: As written, informed consent was obtained prior to the electrophysiology study, the patient was kept on the table where he was prepped and draped in the sterile fashion. Conscious sedation was initiated and maintained throughout the procedure by anesthesiologist. Once sedation was verified, the left infraclavicular area was anesthetized with 2% Xylocaine. Using modified Seldinger technique, the left subclavian vein was cannulated on one occasion and one guide wire was advanced. Then, using #11 blade scalpel, a 3-cm incision was made two fingerbreadths below left clavicle. This incision was then taken down to the deep fascial layer using Bovie cautery and blunt dissection. Into the inferomedial direction, a device pocket was dissected, then the wire was dissected into the pocket. A 2-0 Vicryl suture was placed around the wires to prevent bleeding. At this point, over the wire, the 9- Cuban dilator and introducer was advanced. As dilator and wire were removed, an active fixation right ventricular pacing, sensing and defibrillatory lead was advanced. After adequate pacing and sensing thresholds were obtained, the lead was secured in the pocket with #2 Ethibond suture. At that point, the pocket was copiously irrigated with antibiotic solution. The leads were connected to the generator and placed into the pocket. I did proceed with NIPS. Initial induction consisted of T-wave shock which induced ventricular fibrillation which was adequately detected and treated by the ICD generator, delivering a 25-joule defibrillatory shock converting the patient back into sinus rhythm. Shocking impedance was 64 ohms, charge time 5.6 seconds. At that point NIPS was complete. I did proceed with wound closure. The deep fascial layer was approximated with 2-0 Vicryl suture in a continuous fashion. The subcutaneous layer was approximated with 2-0 Vicryl suture in a continuous fashion. The subcuticular layer was approximated with 2-0 Vicryl suture in a continuous fashion. Dermabond adhesive was applied to the wound, followed by a sterile pressure dressing. There was no complication. The patient tolerated procedure. Blood loss minimal. 1. Implanted Hardware: The implanted defibrillator generator is a ZUGGI, model number UCES0C1, serial number [id number]. The right ventricular pacing, sensing and defibrillatory lead is a Medtronic model number 6935M-62, serial number [id number]. 2. Thresholds: The right ventricular pacing threshold in the bipolar mode was 0.75volts at 0.5 milliseconds, lead impedance 590 ohms and R-wave at 9.4 mV. The right ventricular defibrillatory threshold less than 25 joules shocking, impedance 64 ohms, charge time 5.6 seconds. 3. Settings: The device set in VVI 40 defibrillatory portion for two zones, one zone for ventricular tachycardia between 180 and 250 beats per minute. Initial therapy consists of one burst of ATP, one ramp, 81%, 10 pulse, 10 millisecond decremental, followed by 25 and all subsequent shocks at 35 joules defibrillatory shock, the second zone for ventricular fibrillation above 250 beats per minute, first therapy at 25 and all subsequent shocks at 35 joules defibrillatory shock. CONCLUSIONS: Successful defibrillator implantation and device testing. COMMENT AND RECOMMENDATIONS: The patient will be transferred to the telemetry unit, will be observed and when stable can be discharged home. Frederick Oviedo MD Sep 23, 2017 17:52
--- NOTE | 2017-09-23 17:59 | PD.CARD ---
ELECTROPHYSIOLOGY STUDY 2 PROCEDURE DATE: Sep 23, 2017 NYHA Classification: Class II (Mild) Electrophysiology Study II PROCEDURE Electrophysiology study, coronary sinus cannulation. HISTORY Mr. Connelly is a 57 -year-old male with congestive heart failure, cardiomyopathy, coronary artery disease, syncopal episode, ejection fraction 20 %, referred for electrophysiology study and B defibrillator implantation for sudden prevention. The risks, the nature and the benefit of the procedure are clearly stated to him . Risks include pneumothorax, cardiac perforation, stroke and even . He understood and agreed to proceed. PROCEDURE NOTE After written informed consent was obtained, the patient was brought to the EP lab where he was prepped and draped in the usual sterile fashion. Conscious sedation was initiated and maintained throughout the procedure by anesthesiologist. Once sedation was verified, the right inguinal area was anesthetized with 2% Xylocaine. Using modified Seldinger technique, the right femoral vein was cannulated on four occasions and three guidewires were advanced. Then, over the wires three 5 and a 6 [place]er hemaquets were advanced. Then, under fluoroscopic guidance through the 5 [place] Hemaquet four 5 [place] Madeleine curved quadripolar electrophysiology catheters were advanced and positioned along the His, upper right atrium, right ventricular apex and coronary sinus. The patient was in sinus rhythm Atria pacing protocol was performed . No tachyarrhythmia was performed. Ventricular pacing protocol was performed. Ventricular pacing protocol,no tachyarrhythmia was induced. Then isuprel was initiated. Atrial and ventricular pacing protocol were repeated. No tachyarrhythmia was induced. Because of low BP, procedure was terminated. At that point, procedure was complete. All catheters and Hemaquet were removed. The patient will be kept on the table and a single chamber defibrillator will be implanted for sudden prevention. No incident reported. The patient tolerated the procedure. Blood loss minimal. IMPRESSION 1. Electrocardiogram: At baseline the patient was in Sinus Rhythm. Post- procedure electrocardiogram was unchanged. 2. Basic Interval: The basic cycle length was around 710 milliseconds. AH was 96 ms and H-V was around 40 milliseconds. 3. Atrial pacing protocol: No tachyarrhythmia was induced 4. Ventricular Pacing Protocol: No ventricular tachyarrhythmia was induced. Isuprel. CONCLUSIONS Negative electrophysiology for supra and ventricular tachyarrhythmia COMMENT AND RECOMMENDATION The patient has an EF of 20%, low EF for over 9 years, high risk for sudden cardiac . He will be kept on the table and single chamber defibrillator will be implanted for sudden primary prevention. Frederick Oviedo MD Sep 23, 2017 17:58
--- NOTE | 2017-09-23 18:00 | CATHPROC ---
[facility] HIS Report Study Information Study Number Scheduled Start Study Start [id number] 09/23/2017 Sep 23 2017 5:04PM Referring Institution Admit Source Facility Department 1 Other [facility] Catalyst Operator Gasoline Physician and Clinical Staff Initial Frederick Deshpande Applications Developer Carlos Bro,RT(R) Other Anesthesia, MASTIC SPRAYER Recorder Monika Love,BSRN Scrub Lilli Gibson,RT(R) TECH2 Procedures Performed Procedure Lead Insertion Equipment Time Fire Engine Operator Description Size Mfg Part Number Used/Scraped INTRODUCER SET, FR9 PEEL- PLVN-[id number]- 17:11 COOK/PACER * Used AWAY SHEATH [id number] DERMABOND, ADHESIVE SKIN [id number] 17:10 CORDIS/PACER * Used GLUE MINI *[id number] 17:10 MEDLINE INDUSTRIES SUTURE, STRIP PLUS 1/2" * Used *[id number] 17:10 MEDLINE PACER GÓMEZ, LIMB * 2530 *[id number] Used [id number] 17:10 MEDLINE PACER PACK, PACER CUSTOM * Used *[id number] 17:20 Needle Sponge Count 2 2 Used 17:20 Needle Sponge Count 2 22 Used 17:40 Needle Sponge Count 2 2 Used 17:40 Needle Sponge Count 2 22 Used 17:44 Needle Sponge Count 2 2 Used 17:44 Needle Sponge Count 2 22 Used 17:44 Needle Sponge Count 20 200 Used 17:40 Needle Sponge Count 20 200 Used 17:20 Needle Sponge Count 20 200 Used SUTURE, 0 ETHIBOND [CT1] ([id number]), 8pk SUTURE, 2-0 VICRYL [CT1] ([id number]) SUTURE, 2-0 VICRYL [CT1] ([id number]) [id number] 17:10 [facility],WARM AIR CCL * Used *[id number] [facility] PAD, ELECTROSURGICAL 17:10 * [id number] *[id number] Used SURGICAL GROUNDING ORANGE 17:37 VITATRON MED[employer] DEFIBRILLATOR, VISIA AF MRI VR VVEVVIR [id number] Used LEAD, SPRINT QUATTRO SECURE [id number] 17:29 VITATRON MEDTRONIC 62CM Used S 62CM *[id number] 17:10 [employer]A. / * Used *[id number] Equipment Model, Serial, Lot Number and Expiration Data Description Model Number Serial Number Lot Number Expiration Date DEFIBRILLATOR, VISIA AF MRI VR [id number] 08-29-2018 LEAD, HARISH VELASCO SECURE S [id number] 03-30-2019 62CM History: Allergies Allergy Reaction No Known Allergies nka History: Risk Factors Hypertension Dyslipidemia Previous Heart Failure Yes Yes Yes Prior PCI Yes Chronic Lung Diabetes Diabetes Therapy Disease Yes Yes Insulin Labs Hgb (g/dl) Hct (%) RBC (MIL/MM3) WBC (l/cumm) Platelets (thousands) 11.60-17.00 35.00-51.00 4.00-5.90 4.00-11.00 150.00-450.00 16.1 48.7 5.3 12.8 126 Glucose (mg/dl) BUN (mg/dl) Creatinine (mg/dl) BUN:Creatinine (1:x) 74.00-106.00 7.00-18.00 0.50-1.30 10.00-20.00 254 6 1.1 5.5 Na (meq/l) K (meq/l) 136.00-145.00 3.50-5.10 134 3.7 INR (PTT:PT) 0.90-1.10 1 Medication Medication Total Dose (Bolus/Oral) Medication Total Dosage/Unit 2% XYLOCAINE 50 mL METOPROLOL 5 mg Medications (Bolus/Oral) Medication Time Given Dosage/Unit Administered By Reason METOPROLOL 09/23/2017 5:04:00 PM 5 mg Anesthesia, MASTIC SPRAYER As per physicians verb al order 5 mg METOPROLOL given in lab by Anesthesia, MASTIC SPRAYER in Right Antecubital via Peripheral IV. Ordered by Frederick Guerra. Reason: As per physicians verbal order. 2% XYLOCAINE 09/23/2017 5:23:05 PM 50 mL Frederick Oviedo As per physicians verb al order 50 mL 2% XYLOCAINE given in lab by Frederick Oviedo via Subcutaneous. Ordered by Frederick Oviedo. Reason: As per physicians verbal order. left upper chest Final Case Assessment Cardiovascular HR NIBP 78 88/59 Neurological State Alert Respiration - General Respiration Rate SpO2 (%) (B/min) 20 95 Chronological Log Time Study Chronological Log 17:03:00 Initial procedure has been completed. Beginning additional procedure. 17:03:10 Ancef 2 gms IV given at 1559, Vancomycin 1 gm IV at 1551 5 mg METOPROLOL given in lab by Anesthesia, MASTIC SPRAYER in Right Antecubital via Peripheral IV. Ordere d by Frederick Oviedo. 17:04:00 Reason: As per physicians verbal order. 17:07:30 Anesthesia remains at bedside. Hazel 17:07:56 Disposable Defibrillator Pads Placed On Patient. 17:07:58 Bovie ground pad applied to: 17:08:03 2% CHLORHEXIDINE GLUCONATE WASH AND NASAL SWIPE DONE PRIOR TO PROCEDURE. 17:12:00 Reference ECG taken First Sponge And Instrument Count Done by Monika Love, BSRN. 17:20:06 Hypo's: 2, Sponges: 20, Bovie/scratch: 2 Sutures: 10, Blades: 1, Instruments: 26, Syveck Patches: 0 17:21:24 Immediate Presedation assesment performed by physician. 17:22:52 Case Start 50 mL 2% XYLOCAINE given in lab by Frederick Oviedo via Subcutaneous. Ordered by Frederick Oviedo. Re ason: As per 17:23:05 physicians verbal order. left upper chest 17:27:30 Vascular access was obtained in the Subclav. Vein (Lft. 17:28:00 Surgical Incision Made. 17:30:03 A pocket was created at the Lt. upper chest. A INTRODUCER SET, FR9 PEEL-AWAY SHEATH * was advanced into the Subclav. Vein (Lft using the Per cutaneous 17:30:11 technique. 17:31:05 A LEAD, SPRINT QUATTRO SECURE S 62CM 62CM was inserted and positioned in the RV. 17:31:14 Lead placement verified under fluoroscopy 17:32:39 The RV lead impedance and threshold being tested. 17:33:48 The RV lead was sutured to the fascia. 17:36:10 Pocket flushed with antibiotic solution 17:37:25 A DEFIBRILLATOR, VISIA AF MRI VR VVEVVIR was connected and placed in the pocket. Second Sponge And Instrument Count Done by Carlos Bro, RT(R). 17:39:42 Hypo's: 2, Sponges: 20, Bovie/scratch: 2 Sutures: ~SUTURE~, Blades: 1, Instruments: ~INSTRU~, Syveck Patches: ~SYVECK PATCH~ 17:40:20 The pocket was closed. 17:40:23 Implant Procedure was performed. 17:40:32 A ICD Implant . (Single) 17:41:38 A one Joul DFT was performed. 17:41:44 The DFT was Success at 25 Joules, 64 Ohms lead impedance and 5600 ms charge time. failed a t 20 The Final Sponge And Instrument Count Done by Carlos Bro RT(R). 17:43:26 Hypo's: 2, Sponges: 20, Bovie/scratch: 2 Sutures: 10, Blades: 1, Instruments: 26, Syveck Patches: 0 Assessment: Final Case, HR=78 BPM, NIBP=88/59 mmhg 17:44:55 Neurological: State=Alert Respiration: Resp=20 B/min, SpO2=95 % 17:46:39 Sterile dressing applied to site 17:47:02 Cine recording checked. 17:47:10 Holding Area notified of successful intervention. 17:47:32 Bedside Report will be given. 17:47:36 Implantable Device card placed in patient's chart. 17:47:39 Defibrillator and ground pads removed. Skin intact. 17:50:00 Sheaths removed; pressure applied to access sites. Hemostasis achieved. 17:52:00 No case complications noted. 17:53:00 A sling was placed on the affected arm. 18:00:00 Case End 18:20:00 [facility] in stable condition. End Study - Contrast Media Used In Study Contrast Total Opened (mL) Total Used (mL) Total Wasted (mL) Unspecified 0 0 0 End Study - Maximum Contrast Load Max Contrast Load (mL) 477.3 End Study - Radiation Exposure Fluoro Time (minutes) 1.3 End Study - Patient Disposition Complications Transferred To Interventional Outcome No Telemetry Bed successful
[2017-09-23] MEDS ORDERED: SODIUM CHLORIDE 0.9% FLUSH 10 ML FLUSH IV FLUSH PRN (18:15)
[2017-09-23] MEDS ORDERED: LORazepam 2 MG/ML VIAL IV PUSH PRN (18:15)
[2017-09-23] MEDS ORDERED: ONDANSETRON HCL 4 MG/2 ML VIAL IV PUSH PRN (18:15)
[2017-09-23] MEDS ORDERED: ATROPINE SULFATE 1 MG/ML VIAL IV PUSH PRN (18:15)
[2017-09-23] MEDS ORDERED: LIDOCAINE HCL 1% 50 ML VIAL INFIL PRN (18:15)
[2017-09-23] MEDS ORDERED: SODIUM CHLOR 0.9% 250 ML INJ 250 ML IV PRN (18:15)
[2017-09-23] MEDS ORDERED: METOCLOPRAMIDE HCL 10 MG/2 ML VIAL IV PUSH PRN (18:15)
[2017-09-23] MEDS ORDERED: BACITRACIN OINT 0.9 GM PKT TOP ONE (18:15)
[2017-09-23] MEDS ORDERED: oxyCODONE/ACETAMINOPHEN 5 MG/325 MG TAB PO PRN ×2 (18:15)
--- NOTE | 2017-09-23 19:44 | RADRPT ---
EXAM DATE/TIME: 09/23/2017 19:17 [place] COMPARISON: CHEST SINGLE AP, September 21, 2017, 22:32. INDICATIONS : Post pacemaker. Evaluate for pneumothorax. MEDICAL HISTORY : Hypertension. Diabetes mellitus type II. SURGICAL HISTORY : None. ENCOUNTER: Subsequent ACUITY: 2 days PAIN SCORE: 3/10 LOCATION: Bilateral chest FINDINGS: 2 portable frontal views of the chest show mild cardiomegaly. There is been interval placement of a l eft-sided pacing device. Lead terminates in the region of the right ventricle. No pneumothorax. Lungs are clear. No effusions. Bony structures are unremarkable. CONCLUSION: Left-sided pacing device placement without pneumothorax. Karl Desai Jr., MD on September 23, 2017 at 19:42 Board Certified Radiologist. This report was verified electronically.
--- NOTE | 2017-09-23 20:33 | EKG ---
Date Performed: 09/23/2017 Time Performed: 19:42:01 PTAGE: 57 years EKG: Sinus rhythm POSSIBLE LEFT ATRIAL ENLARGEMENT NONSPECIFIC T-WAVE ABNORMALITY BORDERLINE ECG No significant change from prior electrocardiogram. PREVIOUS TRACING : 09/22/2017 09.22 DOCTOR: Cleveland Clements Interpretating Date/Time 09/23/2017 20:32:09
[2017-09-23] MEDS ORDERED: SODIUM CHLORIDE 0.9% FLUSH 10 ML FLUSH IV FLUSH SCH (21:00)
[2017-09-23 21:21] LABS: HEMOGLOBIN A1C 11.4 % (4.3-6.0)
[2017-09-23] MEDS: traMADol HCL 50 MG TAB PO PRN (23:18)
[2017-09-23] MEDS: ceFAZolin 2 GM PREMIX 50 ML IV SCH (23:19)
[2017-09-24] VITALS (11 sets, daily range): BP systolic 100–124; BP diastolic 62–80; PULSE 88–118; RESP 18–22; TEMP 98.3–98.7; O2SAT 96–97
[2017-09-24] MEDS ORDERED: POTASSIUM CHLORIDE 20 MEQ CONTROLLED RELEASE TAB PO ONE (02:45)
[2017-09-24] MEDS ORDERED: FUROSEMIDE 20 MG/2 ML VIAL IV PUSH ONE (02:45)
[2017-09-24] MEDS: INSULIN ASPART SUPPLEMENTAL SCALE SQ SCH ×2 (08:00→12:33)
[2017-09-24] MEDS: ceFAZolin 2 GM PREMIX 50 ML IV SCH ×2 (08:00→13:55)
[2017-09-24] MEDS: ASPIRIN 325 MG TAB PO SCH (09:00)
[2017-09-24] MEDS: VALSARTAN 40 MG TAB PO SCH (09:00)
[2017-09-24] MEDS: FUROSEMIDE 40 MG TAB PO SCH (09:00)
[2017-09-24] MEDS: MAGNESIUM OXIDE 400 MG TAB PO SCH (09:00)
[2017-09-24] MEDS ORDERED: METOPROLOL TARTRATE 25 MG TAB PO SCH (09:00)
--- NOTE | 2017-09-24 12:29 | HHI.PR ---
Subjective Remarks Follow-up ischemic cardiomyopathy 09/24/17-patient seen and examined, s/p AICD placement 09/23/17. He denies any chest pain, shortness of breath Objective Vitals Vital Signs Date Time Temp Pulse Resp B/P (MAP) Pulse Ox O2 Delivery O2 Flow Rate FiO2 09/24/17 08:00 111 18 118/73 (88) 96 09/24/17 06:00 102 09/24/17 05:00 104 09/24/17 04:00 106 09/24/17 03:36 98.7 105 20 100/62 (75) 97 09/24/17 03:30 104 09/24/17 02:00 108 09/24/17 01:00 106 09/24/17 00:20 22 09/24/17 00:00 110 09/23/17 23:01 97.8 86 20 101/67 (78) 95 09/23/17 23:00 112 09/23/17 22:00 102 09/23/17 21:00 96 09/23/17 20:00 97.8 86 20 101/67 (78) 95 09/23/17 20:00 100 09/23/17 19:00 88 09/23/17 18:29 88 18 92/72 (79) 92 09/23/17 18:26 86 09/23/17 14:43 97.8 89 20 100/59 (73) 97 I/O 09/23/17 09/23/17 09/23/17 09/24/17 09/24/17 09/24/17 07:00 15:00 23:00 07:00 15:00 23:00 Intake Total 980 ml 600 ml 50 ml Output Total 2250 ml 300 ml 350 ml Balance -1270 ml 300 ml -350 ml 50 ml Intake Oral 980 ml 600 ml IV Total 50 ml Output Urine Total 2250 ml 300 ml 350 ml # Voids 4 # Bowel Movements 0 Result Diagram: 09/21/17 2245 09/22/17 0730 Imaging Last Impressions Chest X-Ray 09/23/17 0000 Signed Impressions: Service Date/Time: Saturday, September 23, 2017 19:17 - CONCLUSION: Left- sided pacing device placement without pneumothorax. Karl Desai Jr., MD Objective Remarks GENERAL: NAD SKIN: Warm and dry. HEAD: Normocephalic. EYES: No scleral icterus. No injection or drainage. NECK: Supple, trachea midline. No JVD or lymphadenopathy. CARDIOVASCULAR: Regular rate and rhythm without murmurs, gallops, or rubs. RESPIRATORY: Breath sounds equal bilaterally. No accessory muscle use. GASTROINTESTINAL: Abdomen soft, non-tender, nondistended. MUSCULOSKELETAL: No cyanosis, or edema. BACK: Nontender without obvious deformity. No CVA tenderness. Procedures s/p Single chamber defibrillator implantation and device testing 09/23/17 A/P Problem List: (1) Ischemic cardiomyopathy ICD Code: I25.5 - Ischemic cardiomyopathy (2) Syncope ICD Code: R55 - Syncope and collapse Assessment and Plan 57 year-old man Near-syncope with history of systolic CHF Ischemic cardiomyopathy s/p Single chamber defibrillator implantation and device testing 09/23/17 Continue Lasix, losartan and metoprolol with hold parameters CAD- s/p stent placement continue Lopressor, aspirin and Valsartan. Diabetes mellitus; on accu-check with SSI. A1C 11.4 Hypertension Continue with valsartan to 20 mg twice a day, Lopressor DVT [id number] Joe Avila MD Sep 24, 2017 12:29
--- NOTE | 2017-09-24 12:36 | HHI.FF ---
Face to Face Verification Diagnosis: (1) CHF (congestive heart failure) (2) Ischemic cardiomyopathy (3) Syncope Home Health Nursing Order: Wound care and dressing changes I have seen patient Dominic Connelly on 09/24/17. My clinical findings support the need for the requested home health care services because: Patient has SOB I certify that my clinical findings support that this patient is homebound because: Poor cardiac reserve Joe Avila MD Sep 24, 2017 12:36
--- NOTE | 2017-09-24 12:37 | HHI.DS ---
Discharge Summary Admission Date Sep 21, 2017 at 23:23 Discharge Date: Sep 24, 2017 Admitting Diagnosis ATYPICAL CP (1) Ischemic cardiomyopathy ICD Code: I25.5 - Ischemic cardiomyopathy (2) Syncope ICD Code: R55 - Syncope and collapse (3) CHF (congestive heart failure) ICD Code: I50.9 - Heart failure, unspecified Procedures s/p Single chamber defibrillator implantation and device testing 09/23/17 Brief History - From Admission This is a 57-year-old male with history of CAD, hypertension, diabetes, congestive heart failure that presents to ED stating that yesterday morning at 4 :00 he felt very dizzy in his hands turn white. [place] like he was about the passout. Denied any type of chest discomfort. Denies sensation of heart beating rapidly or irregularly. He was in [place] where he lives at the time. And decided to fly to [place] to evaluate his symptoms. While he was flying back from [place] the same symptoms occurred and he felt like he was about the passout. He decided to take a shuttle bus from [facility] to this hospital for his evaluation. He states that he had a cardiac evaluation in [place] last month. States had a cardiac catheterization that showed no blockages and stated that the stent was open. He also states that was discovered that he had an EF of 20% and they're contemplating an AICD. He states that his insurance would not cover that and was discharged on new medication. He has not followed up with telehealth nurse since. CBC/BMP: 09/21/17 2245 09/22/17 0730 Significant Findings Laboratory Tests Test 09/21/17 22:45 09/22/17 02:32 09/22/17 05:00 09/22/17 07:30 White Blood Count 12.8 TH/MM3 (4.0-11.0) Neutrophils (%) (Auto) 76.3 % (16.0-70.0) Monocytes (%) (Auto) 10.0 % (0.0-8.0) Neutrophils # (Auto) 9.8 TH/MM3 (1.8-7.7) Monocytes # (Auto) 1.3 TH/MM3 (0-0.9) Blood Urea Nitrogen 19 MG/DL (7-18) Creatinine 1.61 MG/DL (0.60-1.30) Random Glucose 326 MG/DL (74-106) 254 MG/DL (74-106) Aspartate Amino Transf (AST/SGOT) 10 U/L (15-37) Sodium Level 132 MEQ/L (136-145) 134 MEQ/L (136-145) Chloride Level 93 MEQ/L (98-107) 97 MEQ/L (98-107) Carbon Dioxide Level 33.1 MEQ/L (21.0-32.0) Estimat Glomerular Filtration Rate 44 ML/MIN (>89) 66 ML/MIN (>89) Troponin I LESS THAN 0.02 NG/ML LESS THAN 0.02 NG/ML LESS THAN 0.02 NG/ML B-Type Natriuretic Peptide 126 PG/ML (0-100) Total Creatine Kinase 34 U/L (39-308) 29 U/L (39-308) Calcium Level 8.4 MG/DL (8.5-10.1) Test 09/23/17 07:21 Hemoglobin A1c 11.4 % (4.3-6.0) Imaging Last Impressions Chest X-Ray 09/23/17 0000 Signed Impressions: Service Date/Time: Saturday, September 23, 2017 19:17 - CONCLUSION: Left- sided pacing device placement without pneumothorax. Karl Desai Jr., MD PE at Discharge GENERAL: NAD SKIN: Warm and dry. HEAD: Normocephalic. EYES: No scleral icterus. No injection or drainage. NECK: Supple, trachea midline. No JVD or lymphadenopathy. CARDIOVASCULAR: Regular rate and rhythm without murmurs, gallops, or rubs. RESPIRATORY: Breath sounds equal bilaterally. No accessory muscle use. GASTROINTESTINAL: Abdomen soft, non-tender, nondistended. MUSCULOSKELETAL: No cyanosis, or edema. BACK: Nontender without obvious deformity. No CVA tenderness. Hospital Course Near-syncope with history of systolic CHF Ischemic cardiomyopathy s/p Single chamber defibrillator implantation and device testing 09/23/17 Treated with Lasix, losartan and metoprolol CAD- s/p stent placement Treated with Lopressor, aspirin and Valsartan. Diabetes mellitus; on accu-check with SSI. A1C 11.4 Hypertension Treated with valsartan to 20 mg twice a day, Lopressor DVT [id number] Pt Condition on Discharge: Stable Discharge Disposition: Discharge Home Discharge Time: > 30 minutes Discharge Instructions DIET: Follow Instructions for: Diabetic Diet Activities you can perform: Regular-No Restrictions Follow up Referrals: Cardiology - 1 Week PCP Follow-up - 2-3 Days New Medications: Metoprolol Tartrate (Metoprolol Tartrate) 25 Mg Tab 12.5 MG PO DAILY for Regulate Heart Beat, #30 TAB Valsartan (Diovan) 40 Mg Tab 20 MG PO BID for Prevent Heart Failure, #60 TAB Continued Medications: Aspirin (Aspirin) 81 Mg Chew 81 MG CHEW DAILY, TAB 0 Refills Furosemide (Lasix) 40 Mg Tab 40 MG PO DAILY, #30 TAB 0 Refills Magnesium Oxide (Magnesium Oxide) 400 Mg Tab 400 MG PO DAILY for Nutritional Supplement, TAB 0 Refills Discontinued Medications: Metoprolol Tartrate (Metoprolol Tartrate) 25 Mg Tab 25 MG PO BID, #60 TAB 0 Refills Valsartan (Valsartan) 40 Mg Tab 40 MG PO BID, #60 TAB 0 Refills Joe Avila MD Sep 24, 2017 12:37
[2017-09-24 13:20] LABS: AUTOMATED NEUTROPHIL # 7.6 TH/MM3 (1.8-7.7); BASOPHIL % 0.5 % (0.0-2.0); EOSINOPHIL # 0.1 TH/MM3 (0-0.4); EOSINOPHIL % 1.4 % (0.0-4.0); HEMATOCRIT 45.8 % (39.0-51.0); HEMOGLOBIN 15.5 GM/DL (13.0-17.0); LYMPH % 13.1 % (9.0-44.0); LYMPHOCYTE # 1.3 TH/MM3 (1.0-4.8); MEAN CELL VOLUME 90.7 FL (80.0-100.0); MEAN CORPUSCULAR HEMOGLOBIN 30.6 PG (27.0-34.0); MEAN CORPUSCULAR HGB CONC 33.7 % (32.0-36.0); MEAN PLATELET VOLUME 8.5 FL (7.0-11.0); MONO % 9.8 % (0.0-8.0); NEUT % 75.2 % (16.0-70.0); PLATELET COUNT 238 TH/MM3 (150-450); RED BLOOD COUNT 5.05 MIL/MM3 (4.50-5.90); RED CELL DISTRIBUTION WIDTH 13.5 % (11.6-17.2); WHITE BLOOD COUNT 10.1 TH/MM3 (4.0-11.0)
[2017-09-24 13:21] LABS: INTERNATIONAL NORMALIZED RATIO 1.1 RATIO; PROTHROMBIN TIME - PATIENT 11.9 SEC (9.8-11.6)
[2017-09-24 13:35] LABS: BICARBONATE 28.6 MEQ/L (21.0-32.0); CALCIUM 8.7 MG/DL (8.5-10.1); CREATININE 1.16 MG/DL (0.60-1.30); MAGNESIUM 2.1 MG/DL (1.5-2.5)
--- NOTE | 2017-09-24 13:53 | EKG ---
Date Performed: 09/24/2017 Time Performed: 07:35:31 PTAGE: 57 years EKG: Sinus rhythm NONSPECIFIC T-WAVE ABNORMALITY BORDERLINE ECG No significant change from prior electrocardiogram. PREVIOUS TRACING : 09/23/2017 19.42 DOCTOR: Cleveland Clements Interpretating Date/Time 09/24/2017 13:52:18
[2017-09-24] MEDS ORDERED: PNEUMOCOCCAL POLYVALENT INJ 25 MCG/0.5 ML SYR IM ONE (14:00)
[2017-09-24] MEDS ORDERED: INFLUENZA VIRUS VACCINE (QUADRIVALENT) 0.5 ML SYR IM ONE (14:00)
[2017-09-24] MEDS: traMADol HCL 50 MG TAB PO PRN (14:20)
== END 2017-09-24 15:51 | disposition home or self-care (01) ==
LOC: NEPE 21:57 → NEDA 23:23 → NEDH 09-22 04:16 → NEPGCP 09-22 06:26 → HCIS 09-23 17:45 → HCIN 09-23 18:26
PROVIDERS: ADMIT Hospitalist; ATTEND Hospitalist
DX: I11.0 Hypertensive heart disease with heart failure (principal); I50.22 Chronic systolic (congestive) heart failure; R42 Dizziness and giddiness; I25.10 Atherosclerotic heart disease of native coronary artery without angina pectoris; R00.2 Palpitations; I25.5 Ischemic cardiomyopathy; R73.9 Hyperglycemia, unspecified; R06.02 Shortness of breath; Z79.82 Long term (current) use of aspirin; Z23 Encounter for immunization; R79.89 Other specified abnormal findings of blood chemistry
CPT/HCPCS: 00530; 33249; 71010; 80048; 80053; 82550; 82948; 83036; 83690; 83735; 83880; 84484; 85025; 85610; 85730; 90732; 93005; 93620; 93623; 96360; 96361; 96372; 99285; C1722; C1730; C1777; G0008; G0009; G0378; J0690; J1815; J1940; J2250; J2370; J2405; J3010; J3370; J7030; Q2038; 90471; 90472; 90686

== ENCOUNTER 2018-06-09 00:02 | Inpatient (IN) ==
[2018-06-09 01:13] LABS: Baso # (Auto) 0.4 th/mm3 (0.0-0.2); Baso % (Auto) 4.2 % (0.0-2.0); Eos # (Auto) 0.3 th/mm3 (0.0-0.4); Eos % (Auto) 3.3 % (0.0-4.0); Hematocrit 43.5 % (39.0-51.0); Hemoglobin 14.7 gm/dL (13.0-17.0); Lymph % (Auto) 9.3 % (9.0-44.0); Mean Corpuscular HGB Conc 33.8 % (32.0-36.0); Mean Corpuscular Hemoglobin 29.7 pg (27.0-34.0); Mean Corpuscular Volume 87.9 fL (80.0-100.0); Mean Platelet Volume 7.6 fL (7.0-11.0); Mono % (Auto) 9.5 % (0.0-8.0); Neut # (Auto) 7.8 th/mm3 (1.8-7.7); Neut % (Auto) 73.7 % (16.0-70.0); Platelet Count 278 th/mm3 (150-450); Red Blood Count 4.95 mil/mm3 (4.50-5.90); Red Cell Distribution Width 13.1 % (11.6-17.2); White Blood Count 10.6 th/mm3 (4.0-11.0)
--- NOTE | 2018-06-09 01:21 | XR ---
EXAM DATE: 06/09/2018 1:03 AM EDT AGE/SEX: 58 years / Male INDICATIONS: Chest pain and shortness of breath. CLINICAL DATA: This is the patient's initial encounter. Patient reports that signs and symptoms have been present for 2 days and indicates a pain score of 4/10. MEDICAL/SURGICAL HISTORY: . Hypertension. Diabetes mellitus type II. Pacemaker. [address] 1 cardiac stent. COMPARISON: [facility] [place], CHEST SINGLE AP, 09/23/2017. . FINDINGS: A single AP view of the chest demonstrates the lungs to be symmetrically aerated without evidence of mass, infiltrate or effusion. The cardiomediastinal contours are unremarkable. Osseous structures a re intact. Left subclavian unipolar pacer is radiographically intact CONCLUSION: No acute cardiopulmonary process. Electronically signed by: Gilles Fletcher MD 06/09/2018 1:19 AM EDT
[2018-06-09 01:24] LABS: Carbon Dioxide 26.1 meq/L (21.0-32.0); Potassium 3.9 meq/L (3.5-5.1)
[2018-06-09 01:25] LABS: Magnesium 1.3 mg/dL (1.5-2.5)
[2018-06-09 01:27] LABS: Troponin I 0.02 ng/mL (0.02-0.05)
[2018-06-09 01:31] LABS: Activated Partial Thrombo Time 28.4 sec (24.3-30.1); INR 1.2 Ratio; Prothrombin Time 11.7 sec (9.8-11.6)
--- NOTE | 2018-06-09 01:41 | ED ---
HPI General Chief Complaint: Chest Pain Stated Complaint: Diff breathing, cardiac history Time Seen by Provider: 06/09/18 00:25 History of Present Illness HPI narrative: 58-year-old male presents to the emergency department by taxi from airport for complaint of chest pain and shortness of breath. Patient states he lives in [place] and made plane flight arrangements last night to fly to [facility] to be evaluated here at [facility] for chest pain and shortness of breath. Patient has extensive past medical history of CAD with patent stents by cardiac catheterization reportedly performed in [place] in 2016, defibrillator insertion by Dr. Oviedo September 2017, CHF, ischemic cardiomyopathy , diabetes, and hypertension. Patient states that he is under the care of a sample tester in [place] where he lives. Patient is becoming more symptomatic over the past 3 weeks and reportedly 3 days ago patient states he discontinued taking his medications as his blood pressure was too low. Patient's had no near syncope or syncope. Patient was on metoprolol twice daily losartan and diabetic medication but states because of low blood pressure he stopped all medications. Patient arrives here stating that his chest pain has resolved and has some persistent shortness of breath but that has improved as well. Patient reports that he is had diaphoresis over the past 4 days and has lost at least 4 pounds in the last 24 hours from diaphoresis. No nausea no vomiting no pleuritic chest pain no lower extremity pain or swelling other than some pedal edema. Patient states that he has had no fever. No productive cough no reported hemoptysis. Patient reports that his heart rate is only 60 bpm but over the past 3 weeks his new baseline is 1 25 bpm at all times. Patient has noted dyspnea on exertion. Complete Quality Measures for STEMI Alert Patients Related Data Home Medications Medication Instructions Recorded Confirmed diphenhydramine HCl [Sleeping] See Label Instructions .ROUTE 06/09/18 06/09/18 .COMPLEX PRN furosemide [Lasix] 40 mg PO BID 06/09/18 06/09/18 metformin 500 mg PO BID 06/09/18 06/09/18 methyltestosterone [Testred] 10 unit DAILY 06/09/18 06/09/18 tramadol 100 mg PO DAILY 06/09/18 06/09/18 Allergies Allergy/AdvReac Type Severity Reaction Status Date / Time nka Allergy Unknown Uncoded 07/25/03 03:11 No Known Allergies Allergy Unknown Uncoded 09/22/17 07:56 Review of Systems Except as stated in HPI: all other systems reviewed are negative [facility] Medical History Medical History CHF (congestive heart failure) (Acute) COPD (chronic obstructive pulmonary disease) (Acute) Cardiac defibrillator in place (Acute) Chest pain (Acute) Diabetes (Acute) Myocardial infarct, old (Acute) Vision changes (Acute) Social History Social History Substance History: No History of Abuse Second Hand Smoke Exposure: No Smoking Status: Former smoker Tobacco Type: Cigarettes How Often Do You Have a Drink Containing Alcohol: Never Recent Travel in [facility] within the Last 8 Weeks: No Recent Out of Country Travel within the Last 8 Weeks: No Immunization History Tetanus Immunization: <5 Years Hx Influenza Vaccine This Season: Yes Exam Narrative Exam Narrative: GENERAL: Well-nourished, well-developed patient. No acute distress no respiratory distress. SKIN: Focused skin assessment warm/dry. HEAD: Normocephalic. EYES: No scleral icterus. No injection or drainage. NECK: Supple, trachea midline. No JVD or lymphadenopathy. CARDIOVASCULAR: Increased regular rate and rhythm without murmurs, gallops, or rubs. RESPIRATORY: Breath sounds equal bilaterally. No accessory muscle use. GASTROINTESTINAL: Abdomen soft, non-tender, nondistended. MUSCULOSKELETAL: No cyanosis, or edema. BACK: Nontender without obvious deformity. No CVA tenderness. Course Initial Documented Vital Signs Temperature 98 F 06/09/18 00:13 Pulse Rate 130 H 06/09/18 00:13 Respiratory Rate 18 06/09/18 00:13 Blood Pressure 136/82 06/09/18 00:13 Pulse Oximetry 95 06/09/18 00:13 Last Documented Vital Signs Temperature 98 F 06/09/18 00:13 Pulse Rate 125 H 06/09/18 00:34 Respiratory Rate 18 06/09/18 00:13 Blood Pressure 132/78 06/09/18 00:32 Pulse Oximetry 97 06/09/18 00:34 Medical Decision Making Lab Data Lab results reviewed: Yes I reviewed the patient's lab results. Result diagrams: 06/09/18 00:55 06/09/18 00:55 Lab Results 06/09/18 06/09/18 06/09/18 Range/Units 00:55 00:55 00:55 WBC 10.6 (4.0-11.0) th/mm3 RBC 4.95 (4.50-5.90) mil/mm3 Hgb 14.7 (13.0-17.0) gm/dL Hct 43.5 (39.0-51.0) % MCV 87.9 (80.0-100.0) fL MCH 29.7 (27.0-34.0) pg MCHC 33.8 (32.0-36.0) % RDW 13.1 (11.6-17.2) % Plt Count 278 (150-450) th/mm3 MPV 7.6 (7.0-11.0) fL Prelim Diff (Auto) Slide review pending Neut % (Auto) 73.7 H (16.0-70.0) % Lymph % (Auto) 9.3 (9.0-44.0) % [place] % (Auto) 9.5 H (0.0-8.0) % Eos % (Auto) 3.3 (0.0-4.0) % Baso % (Auto) 4.2 H (0.0-2.0) % Neut # (Auto) 7.8 H (1.8-7.7) th/mm3 Lymph # (Auto) 1.0 (1.0-4.8) th/mm3 [place] # (Auto) 1.0 H (0.0-0.9) th/mm3 Eos # (Auto) 0.3 (0.0-0.4) th/mm3 Baso # (Auto) 0.4 H (0.0-0.2) th/mm3 Differential Comment . PT 11.7 H (9.8-11.6) sec INR 1.2 Ratio APTT 28.4 (24.3-30.1) sec Sodium 135 L (136-145) meq/L Potassium 3.9 (3.5-5.1) meq/L Chloride 100 (98-107) meq/L Carbon Dioxide 26.1 (21.0-32.0) meq/L Anion Gap 9 (5-15) meq/L BUN 11 (7-18) mg/dL Creatinine 1.27 (0.60-1.30) mg/dL Estimated GFR 58 L (>89) mL/min Random Glucose 312 H (74-106) mg/dL Calcium 9.0 (8.5-10.1) mg/dL Magnesium (1.5-2.5) mg/dL Total Creatine Kinase (39-308) U/L Troponin I 0.02 (0.02-0.05) ng/mL B-Natriuretic Peptide (0-100) pg/mL 06/09/18 06/09/18 Range/Units 00:55 00:55 WBC (4.0-11.0) th/mm3 RBC (4.50-5.90) mil/mm3 Hgb (13.0-17.0) gm/dL Hct (39.0-51.0) % MCV (80.0-100.0) fL MCH (27.0-34.0) pg MCHC (32.0-36.0) % RDW (11.6-17.2) % Plt Count (150-450) th/mm3 MPV (7.0-11.0) fL Prelim Diff (Auto) Neut % (Auto) (16.0-70.0) % Lymph % (Auto) (9.0-44.0) % [place] % (Auto) (0.0-8.0) % Eos % (Auto) (0.0-4.0) % Baso % (Auto) (0.0-2.0) % Neut # (Auto) (1.8-7.7) th/mm3 Lymph # (Auto) (1.0-4.8) th/mm3 [place] # (Auto) (0.0-0.9) th/mm3 Eos # (Auto) (0.0-0.4) th/mm3 Baso # (Auto) (0.0-0.2) th/mm3 Differential Comment PT (9.8-11.6) sec INR Ratio APTT (24.3-30.1) sec Sodium (136-145) meq/L Potassium (3.5-5.1) meq/L Chloride (98-107) meq/L Carbon Dioxide (21.0-32.0) meq/L Anion Gap (5-15) meq/L BUN (7-18) mg/dL Creatinine (0.60-1.30) mg/dL Estimated GFR (>89) mL/min Random Glucose (74-106) mg/dL Calcium (8.5-10.1) mg/dL Magnesium 1.3 L (1.5-2.5) mg/dL Total Creatine Kinase 71 (39-308) U/L Troponin I (0.02-0.05) ng/mL B-Natriuretic Peptide 567 H (0-100) pg/mL Imaging Data Radiologist's impression: Chest X-Ray 06/09/18 00:25 CONCLUSION: No acute cardiopulmonary process. ECG Data EKG Prior to Arrival: No Attestation: I personally reviewed and interpreted this ECG as follows: Prior ECG tracings: available for review Interpretation: EKG: Sinus tachycardia rate 127 LVH by voltage criterion nonspecific ST-T changes no acute ST elevation Discharge Plan Discharge Disposition Patient Disposition: 30 Still Patient Discharge Condition Condition: Stable Discharge Details Diagnosis: Chest pain, Diabetes mellitus, H/O CHF, Hypomagnesemia Physicians Team ED Provider: Gina Carson Rxs /Orders / Referrals /Forms Prescriptions: No Action furosemide [Lasix] 40 mg Tablet 40 mg PO BID RF: 0 metformin 500 mg Tablet 500 mg PO BID RF: 0 diphenhydramine HCl [Sleeping] 50 mg Capsule See Label Instructions .ROUTE .COMPLEX PRN (Reason: Sleep) RF: 0 methyltestosterone [Testred] 10 mg Capsule 10 unit DAILY RF: 0 tramadol 100 mg Tablet Extended Release 24 Hr 100 mg PO DAILY RF: 0 Discharge Instructions Patient Printed Instructions: Chest Pain (ED) Status ED Status: With Doctor
[2018-06-09] MEDS ORDERED: Mag Sulf 1 gm/100 ml Premix 100 ML IV.SIG ONE (01:46)
[2018-06-09 02:11] LABS: Eosinophils 2 % (0-4); Lymphocytes 12 % (9-44); Monocytes 8 % (0-8); Platelet Estimate Normal (Normal); Platelet Morphology Normal (Normal); RBC Morphology Normal (Normal)
[2018-06-09] MEDS ORDERED: Morphine Inj 4 MG/ML Vial IV.PUSH PRN (04:20)
[2018-06-09] MEDS ORDERED: Acetaminophen 500 MG Tablet PO PRN (04:20)
[2018-06-09 05:53] LABS: Magnesium 2.3 mg/dL (1.5-2.5); Troponin I 0.03 ng/mL (0.02-0.05)
[2018-06-09 09:17] LABS: Troponin I 0.03 ng/mL (0.02-0.05)
[2018-06-09] MEDS: Aspirin 325 MG Tablet PO SCH (10:36)
--- NOTE | 2018-06-09 11:36 | P.HPCA ---
History of Present Illness Primary Care Physician: Tonya Dixon Chief Complaint: Shortness of breath and chest pain History of Present Illness: This is a 58-year-old male with history of ischemic cardiomyopathy and states his EF is approximately 20-25% was told one point that he may need a left ventricular assist device with stent placed 2001 and the fibrillar placed September 2017 the presents to ED with complaint of chest discomfort patient lives in [place]. States he has been having 3 days worth of constant shortness of breath with even lightly walking. He also has had intermittent squeezing left side of his chest rated as a 3 out of 10. When it happens occurs for a few minutes. It makes him nauseous and diaphoretic as well. He has not seen a reverse logistics analyst since having a defibrillator placed by Dr. Oviedo September 2017. He also states that his blood pressure has been dropping and states that his been running about 90 over 60s so he stopped taking losartan and metoprolol. He also states that his resting heart rate used to be in the 60s but now heart rate has been over 100. Really cannot recall if it was before he stopped taking metoprolol afterwards. He also has flown to [place] about a month ago from [place]. He is having the symptoms at the time. He states that his legs do swell up but that has been a problem is had for years. It does not seem that the Lasix had been helping it recently but he stopped taking that 3 days ago as well thinking that all the medications could be causing his symptoms. He has not been coughing. No fevers or chills. Patient has had stent in the past. He quit smoking in 2000. There is family history of CAD. - Diagnosis (1) Chest pain (2) Diabetes mellitus (3) Ischemic cardiomyopathy (4) Cardiac defibrillator in place (5) Hypertension Review of Systems General: Patient denies fevers, chills, and recent travel. HEENT: Patient denies headache, sore throat, difficulty swallowing. Cardiovascular: Has the chest discomfort as mentioned above. Denies sensation of heart beating rapidly or irregularly. No syncope. At times has been diaphoretic. Respiratory: He has been short of breath. Denies inspirational chest discomfort. Denies coughing wheezing or hemoptysis. GI: He has been nauseated. Patient denies vomiting, diarrhea, abdominal pain, bloody stools. Musculoskeletal: Patient denies joint pain or edema. Denies calf pain but has noticed swelling in his lower extremities. Neurovascular: Patient denies numbness, tingling, weakness in extremities. Denies headache. Endocrine: Denies polyuria and polydipsia. Hematologic: Denies easy bruising. Skin: Denies rash or itching. PMFSH - History History Provided By: Patient - Medical History Medical History: Medical History (Last Reviewed 06/09/18 @ 01:57 by Gina Carson MD) CHF (congestive heart failure) COPD (chronic obstructive pulmonary disease) Cardiac defibrillator in place Chest pain Diabetes Myocardial infarct, old Vision changes - Tobacco History Second Hand Smoke Exposure: No Tobacco Use In Past 30 Days: No Smoking Status: Former smoker Tobacco Type: Cigarettes - Alcohol History How Often Do You Have a Drink Containing Alcohol: Never - Substance Use History Substance History: No History of Abuse - Travel History Recent Travel in the [facility] Within the Last 8 Weeks: No Recent Travel Out of the Country Within the Last 8 Weeks: No - Immunization History Tetanus Immunization: <5 Years Hx Influenza Vaccine This Season: Yes Medications and Allergies Active Medications: Active Medications Acetaminophen (Tylenol) 500 mg PO Q4H PRN PRN Reason: HEADACHE Aspirin (Aspirin) 325 mg PO DAILY SCAR Last Admin: 06/09/18 10:36 Dose: Not Given Morphine Sulfate (Morphine Inj) 2 mg IV.PUSH Q4H PRN PRN Reason: PAIN SCALE 8 TO 10 Nitroglycerin (Nitrostat Sl) 0.4 mg SL Q5M PRN PRN Reason: CHEST PAIN Ondansetron HCl (Zofran Inj) 4 mg IV.PUSH Q6H PRN PRN Reason: NAUSEA Sodium Chloride (Ns Flush) 2 ml IV.FLUSH UNSCH PRN PRN Reason: FLUSH AFTER USING IV ACCESS Sodium Chloride (Ns Flush) 2 ml IV.FLUSH BID SCAR Sodium Chloride (Ns Flush) 2 ml IV.FLUSH PRN PRN PRN Reason: FLUSH AFTER USING IV ACCESS Allergies Allergy/AdvReac Type Severity Reaction Status Date / Time nka Allergy Unknown Uncoded 07/25/03 03:11 No Known Allergies Allergy Unknown Uncoded 09/22/17 07:56 Home Medications Medication Instructions Recorded Confirmed Type diphenhydramine HCl [Sleeping] See Label Instructions .ROUTE 06/09/18 06/09/18 History .COMPLEX PRN furosemide [Lasix] 40 mg PO BID 06/09/18 06/09/18 History metformin 500 mg PO BID 06/09/18 06/09/18 History methyltestosterone [Testred] 10 unit DAILY 06/09/18 06/09/18 History metoprolol tartrate 12.5 mg PO DAILY 06/09/18 06/09/18 History tramadol 37.3 mg PO DAILY PRN 06/09/18 06/09/18 History tramadol 100 mg PO DAILY 06/09/18 06/09/18 History valsartan 20 mg PO BID 06/09/18 06/09/18 History Exam Vital signs: Vital Signs 06/09/18 00:13 06/09/18 00:32 06/09/18 00:33 Temperature 98 F Pulse Rate 130 H 127 H Respiratory Rate 18 Blood Pressure 136/82 132/78 Pulse Oximetry 95 97 97 06/09/18 00:34 06/09/18 02:53 06/09/18 04:51 Temperature Pulse Rate 125 H 109 H Respiratory Rate 18 Blood Pressure 107/69 Pulse Oximetry 97 96 96 06/09/18 05:04 Temperature Pulse Rate 104 H Respiratory Rate 18 Blood Pressure 108/69 Pulse Oximetry 98 Intake & Output 06/08/18 06/09/18 06/09/18 18:59 06:59 18:59 Intake Total 100 / 100 Balance 100 / 100 Weight 104.326 kg Intake: IV 100 / 100 Magnesium Sulfate 1 gm/D5W 100 100 / 100 ml Premix 100 ML @ 100 mls/hr IV.SIG ONCE ONE Rx#:[id number] Narrative: GENERAL: This is a well-nourished, well-developed patient, in no apparent distress. Patient speaks in clear complete sentences. Patient is pleasant. HEENT: Head is atraumatic and normocephalic. Neck is supple without lymphadenopathy and trachea is midline. No JVD or carotid bruits. CARDIOVASCULAR: Regular rate and rhythm without murmurs, gallops, or rubs. RESPIRATORY: Mild crackles in bases. Breath sounds equal bilaterally. No wheezes, rales, or rhonchi. Chest wall is nontender. No use of accessory muscles. GASTROINTESTINAL: Abdomen is nontender, nondistended. Abdomen soft. No obvious pulsatile mass or bruit. No CVA tenderness. Strong femoral pulses bilaterally. Normal bowel sounds in all quadrants. MUSCULOSKELETAL: Patient is moving upper and lower extremities freely. Mild edema bilateral extremities. No calf tenderness and no Homans sign. Strong pulses in upper and lower extremities. NEUROLOGICAL: Patient is alert and oriented. Cranial nerves 2-12 are grossly intact. No focal deficits and speech is clear. SKIN: No rash and turgor is normal. Results 06/09/18 00:55 06/09/18 00:55 Cardiac Enzymes 06/09/18 06/09/18 06/09/18 Range/Units 00:55 00:55 05:04 Troponin I 0.02 0.03 (0.02-0.05) ng/mL B-Natriuretic Peptide 567 H (0-100) pg/mL 06/09/18 Range/Units 08:25 Troponin I 0.03 (0.02-0.05) ng/mL B-Natriuretic Peptide (0-100) pg/mL Coagulation 06/09/18 06/09/18 Range/Units 00:55 00:55 PT 11.7 H (9.8-11.6) sec APTT 28.4 (24.3-30.1) sec B-Natriuretic Peptide 567 H (0-100) pg/mL CBC 06/09/18 Range/Units 00:55 WBC 10.6 (4.0-11.0) th/mm3 RBC 4.95 (4.50-5.90) mil/mm3 Hgb 14.7 (13.0-17.0) gm/dL Hct 43.5 (39.0-51.0) % Plt Count 278 (150-450) th/mm3 Neut # (Auto) 7.8 H (1.8-7.7) th/mm3 Lymph # (Auto) 1.0 (1.0-4.8) th/mm3 [place] # (Auto) 1.0 H (0.0-0.9) th/mm3 Eos # (Auto) 0.3 (0.0-0.4) th/mm3 Baso # (Auto) 0.4 H (0.0-0.2) th/mm3 Comprehensive Metabolic Panel 06/09/18 Range/Units 00:55 Sodium 135 L (136-145) meq/L Potassium 3.9 (3.5-5.1) meq/L Chloride 100 (98-107) meq/L Carbon Dioxide 26.1 (21.0-32.0) meq/L BUN 11 (7-18) mg/dL Creatinine 1.27 (0.60-1.30) mg/dL Calcium 9.0 (8.5-10.1) mg/dL Intake and Output 06/08/18 06/09/18 06/09/18 22:59 06:59 14:59 Intake Total 100 / 100 Balance 100 / 100 Intake: IV 100 / 100 Magnesium Sulfate 1 gm/D5W 100 100 / 100 ml Premix 100 ML @ 100 mls/hr IV.SIG ONCE ONE Rx#:[id number] Other: Weight 104.326 kg Caprini VTE Risk Assessment Caprini VTE Risk Assessment: No/Low Risk (score <= 1) Caprini Risk Assessment Model: Point Value = 1 Point Value = 2 Point Value = 3 Point Value = 5 Age 41-60 Minor surgery BMI > 25 kg/m2 Swollen legs Varicose veins or History of unexplained or recurrent spontaneous Oral contraceptives or hormone replacement Sepsis (< 1 month) Serious lung disease, including pneumonia (< 1 month) Abnormal pulmonary function Acute myocardial infarction Congestive heart failure (< 1 month) History of inflammatory bowel disease Medical patient at bed rest Age 61-74 Arthroscopic surgery Major open surgery (> 45 min) Laparoscopic surgery (> 45 min) Malignancy Confined to bed (> 72 hours) Immobilizing plaster cast Central venous access Age >= 75 History of VTE Family history of VTE Factor V Leiden Prothrombin [id number] Lupus anticoagulant Anticardiolipin antibodies Elevated serum homocysteine Heparin-induced thrombocytopenia Other congenital or acquired thrombophilia Stroke (< 1 month) Elective arthroplasty Hip, pelvis, or leg fracture Acute spinal cord injury (< 1 month) Prophylaxis Regimen: Total Risk Factor Score Risk Level Prophylaxis Regimen 0-1 Low Early ambulation 2 Moderate Order ONE of the following: *Sequential Compression Device (SCD) *Heparin 5000 units SQ BID 3-4 Higher Order ONE of the following medications: *Heparin 5000 units SQ TID *Enoxaparin/Lovenox 40 mg SQ daily (WT < 150 kg, CrCl > 30 mL/min) *Enoxaparin/Lovenox 30 mg SQ daily (WT < 150 kg, CrCl > 10-29 mL/min) *Enoxaparin/Lovenox 30 mg SQ BID (WT < 150 kg, CrCl > 30 mL/min) AND/OR *Sequential Compression Device (SCD) 5 or more Highest Order ONE of the following medications: *Heparin 5000 units SQ TID (Preferred with Epidurals) *Enoxaparin/Lovenox 40 mg SQ daily (WT < 150 kg, CrCl > 30 mL/min) *Enoxaparin/Lovenox 30 mg SQ daily (WT < 150 kg, CrCl > 10-29 mL/min) *Enoxaparin/Lovenox 30 mg SQ BID (WT < 150 kg, CrCl > 30 mL/min) AND *Sequential Compression Device (SCD) Assessment and Plan - Assessment (1) Chest pain Code(s): R07.9 - Chest pain, unspecified Status: Acute (2) Diabetes mellitus Code(s): E11.9 - Type 2 diabetes mellitus without complications Status: Acute (3) Ischemic cardiomyopathy Code(s): I25.5 - Ischemic cardiomyopathy Status: Acute (4) Cardiac defibrillator in place Code(s): Z95.810 - Presence of automatic (implantable) cardiac defibrillator Status: Acute (5) Hypertension Code(s): I10 - Essential (primary) hypertension Status: Acute - Plan * Chest pain: Patient has had serial cardiac enzymes and EKGs for ruling out purposes. He was seen by Dr. Rosa cardiology in the chest pain center and at this time recommends patient admitted to [facility] ([place], [place])ist consulting his reverse logistics analyst for further management. * History of ischemic cardiomyopathy: We will resume his medication. He states he is feeling a little better after getting IV Lasix last evening. Admits to not taking his p.o. Lasix for 3 days. We will restart his medications. Patient has defibrillator. Will consult his reverse logistics analyst. * Hypertension: Resume his medication. * Diabetes: Patient will be on sliding scale insulin coverage. Patient is stable at this time. He is agreeable to this plan. (1) Chest pain Qualifiers: Chest pain type: precordial pain Qualified Code(s): R07.2 - Precordial pain (2) Diabetes mellitus Qualifiers: Diabetes mellitus type: type 2 Diabetes mellitus intermediate insulin use: with intermediate use Diabetes mellitus complication status: with unspecified complications Qualified Code(s): E11.8 - Type 2 diabetes mellitus with unspecified complications; Z79.4 - equalizer operator (current) use of insulin
[2018-06-09] MEDS ORDERED: Metoprolol Tartrate 25 MG Tablet PO SCH (11:45)
[2018-06-09] MEDS ORDERED: Furosemide 40 MG Tablet PO SCH (11:45)
--- NOTE | 2018-06-09 12:46 | P.HPIM ---
History of Present Illness Service: [facility] Primary Care Physician: Tonya Dixon Chief Complaint: Shortness of breath and chest pain History of Present Illness: Mr. Connelly is a 58 yo M with PMH of CAD (prior stenting in 2002), CHF ( reported EF 20% per patient; 40% in 2003 per EMR), defibrillator placement (by Dr. Oviedo for suspected malignant arrhythmia in 2017) who presents for concern for worsening heart failure. Patient reports acute onset of multiple symptoms ~2 days prior which concerned him, so he decided to fly to [facility] from where he lives in [place] to f/u with Dr. Oviedo due to history of cardiac treatment. Patient reports having had "blue lips", severe shortness of breath with ambulating several steps, and increased pallor for the past 2 days. Patient has also noticed acute weight gain of 10lbs sicne last week and has been urinating less. He has been coughing more and states he coughed up blood twice in the past several days. Patient also reports increased visual blurriness. Due to the rapid onset of these symptoms, patient stopped taking his home medications (lasix, tramadol, metformin, metoprolol, valsartan) since he has been hypotensive with SBP in 90's. Patient also reports increased symptoms over the past several months. He has averaged heart rate ~125bpm, has had increased blood glucose levels, and has had episodic chest pain which lasts for seconds at time. patient states that he has been incontinent with frequent urination prior to onset of decreased urination several days prior. He has also had chronic left foot and left thumb numbness. He has been sweating at night for years. Patient has been getting weekly testosterone injections for high estrogen levels. He states his glucose levels have been 300's+ for several months. Interval History: Patient arrived to ED with HR 130; otherwise stable vital signs. EKG demonstrated sinus tachycardia and QTC [address] changes. CXR, CBC , BMP unremarkable with exception of chemistry with hyperglycemia. troponin on admission wnl, BNP in 500's; subsequent ACS rule-out with troponins and EKG's reassuring. Patient initially admitted to chest pain center; seen by Dr. 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 Review of Systems Constitutional: Reports excessive sweating, Reports fatigue, Reports weight gain , Denies weight loss Eyes: Reports blurry vision, Denies irritation Cardiovascular: Denies chest pain, Denies chest pain at rest Respiratory: Reports cough, Reports coughing up blood, Reports shortness of breath, Reports shortness of breath with activity, Denies change in phlegm color Gastrointestinal: Denies abdominal pain, Denies bloating Musculoskeletal: Denies abnormal walking, Denies back pain Neurologic: Reports numbness, Denies abnormal hearing PMFSH - History History Provided By: Patient - Medical History Medical History: Medical History (Last Updated 06/09/18 @ 21:35 by Nelson Bennett MD) CHF (congestive heart failure) COPD (chronic obstructive pulmonary disease) Cardiac defibrillator in place Cardiac defibrillator in place Chest pain Colon polyp Diabetes Myocardial infarct, 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 Vision changes - Surgical History Surgical History: Surgical History (Last Updated 06/09/18 @ 21:35 by Nelson Bennett MD) H/O cardiac catheterization H/O hernia repair - Family History Family History: Family History (Last Updated 06/09/18 @ 21:36 by Nelson Bennett MD) Mother Cancer Father Cancer - Tobacco History Second Hand Smoke Exposure: No Tobacco Use In Past 30 Days: No Smoking Status: Former smoker Tobacco Type: Cigarettes - Alcohol History How Often Do You Have a Drink Containing Alcohol: Never - Substance Use History Substance History: No History of Abuse - Travel History Recent Travel in the [place] Within the Last 8 Weeks: No Recent Travel Out of the Country Within the Last 8 Weeks: No - Immunization History Tetanus Immunization: <5 Years Hx Influenza Vaccine This Season: Yes Medications and Allergies Active Medications: Active Medications Acetaminophen (Tylenol) 500 mg PO Q4H PRN PRN Reason: HEADACHE Aspirin (Aspirin) 325 mg PO DAILY [facility] Last Admin: 06/09/18 10:36 Dose: Not Given Furosemide (Lasix) 40 mg PO BID [facility] Metoprolol Tartrate (Lopressor) 12.5 mg PO DAILY [facility] Morphine Sulfate (Morphine Inj) 2 mg IV.PUSH Q4H PRN PRN Reason: PAIN SCALE 8 TO 10 Nitroglycerin (Nitrostat Sl) 0.4 mg SL Q5M PRN PRN Reason: CHEST PAIN Non-Formulary Medication (Tramadol [Tramadol]) 100 mg PO DAILY [facility] Ondansetron HCl (Zofran Inj) 4 mg IV.PUSH Q6H PRN PRN Reason: NAUSEA Sodium Chloride (Ns Flush) 2 ml IV.FLUSH UNSCH PRN PRN Reason: FLUSH AFTER USING IV ACCESS Sodium Chloride (Ns Flush) 2 ml IV.FLUSH BID SCAR Sodium Chloride (Ns Flush) 2 ml IV.FLUSH PRN PRN PRN Reason: FLUSH AFTER USING IV ACCESS Valsartan (Diovna) 20 mg PO BID SCAR Allergies Allergy/AdvReac Type Severity Reaction Status Date / Time nka Allergy Unknown Uncoded 07/25/03 03:11 No Known Allergies Allergy Unknown Uncoded 09/22/17 07:56 Home Medications Medication Instructions Recorded Confirmed Type diphenhydramine HCl [Sleeping] See Label Instructions .ROUTE 06/09/18 06/09/18 History .COMPLEX PRN furosemide [Lasix] 40 mg PO BID 06/09/18 06/09/18 History metformin 500 mg PO BID 06/09/18 06/09/18 History methyltestosterone [Testred] 10 unit DAILY 06/09/18 06/09/18 History metoprolol tartrate 12.5 mg PO DAILY 06/09/18 06/09/18 History tramadol 37.3 mg PO DAILY PRN 06/09/18 06/09/18 History tramadol 100 mg PO DAILY 06/09/18 06/09/18 History valsartan 20 mg PO BID 06/09/18 06/09/18 History Exam Vital signs: Vital Signs 06/09/18 00:13 06/09/18 00:32 06/09/18 00:33 Temperature 98 F Pulse Rate 130 H 127 H Respiratory Rate 18 Blood Pressure 136/82 132/78 Pulse Oximetry 95 97 97 06/09/18 00:34 06/09/18 02:53 06/09/18 04:51 Temperature Pulse Rate 125 H 109 H Respiratory Rate 18 Blood Pressure 107/69 Pulse Oximetry 97 96 96 06/09/18 05:04 06/09/18 11:24 Temperature Pulse Rate 104 H 105 H Respiratory Rate 18 20 Blood Pressure 108/69 120/76 Pulse Oximetry 98 99 Intake & Output 06/08/18 06/09/18 06/09/18 18:59 06:59 18:59 Intake Total 100 / 100 Balance 100 / 100 Weight 104.326 kg Intake: IV 100 / 100 Magnesium Sulfate 1 gm/D5W 100 100 / 100 ml Premix 100 ML @ 100 mls/hr IV.SIG ONCE ONE Rx#:[id number] Narrative: GENERAL: no acute distress SKIN: Warm and dry. EYES: EOM grossly intact. Poor visual acuity bilaterally. PERRLA. Funduscopy attempted but noncontributory ENT: Throat clear; no visible bleeding NECK: No appreciated cervical lymphadenopathy or lymphadenopathy CARDIOVASCULAR: Regular rate and rhythm to auscultation without murmurs to auscultation. Peripheral perfusion grossly intact RESPIRATORY: Lungs clear to auscultation bilaterally, normal respiratory rate GASTROINTESTINAL: Abdomen nondistended; non-tender. Normal bowel sounds. MUSCULOSKELETAL: NOrmal strength and ROM in bilateral upper and lower extremities. No significant LE edema. No calf pain or asymmetry NEUROLOGICAL: Awake and alert. CN normal. Grossly normal strength and sensation. PSYCH: Appropriate mood and affect. Results - Labs CBC & Chem 7: 06/09/18 00:55 06/09/18 00:55 Labs: Short CBC 06/09/18 Range/Units 00:55 WBC 10.6 (4.0-11.0) th/mm3 Hgb 14.7 (13.0-17.0) gm/dL Hct 43.5 (39.0-51.0) % Plt Count 278 (150-450) th/mm3 BMP 06/09/18 00:55 Sodium 135 L Potassium 3.9 Chloride 100 Carbon Dioxide 26.1 BUN 11 Creatinine 1.27 Calcium 9.0 Cardiac Enzymes 06/09/18 06/09/18 06/09/18 Range/Units 00:55 00:55 05:04 Total Creatine Kinase 71 60 (39-308) U/L Troponin I 0.02 0.03 (0.02-0.05) ng/mL 06/09/18 Range/Units 08:25 Total Creatine Kinase 53 (39-308) U/L Troponin I 0.03 (0.02-0.05) ng/mL - Imaging Impressions Chest X-Ray 06/09/18 00:25 CONCLUSION: No acute cardiopulmonary process. Caprini VTE Risk Assessment Caprini VTE Risk Assessment: Moderate/High Risk (score >= 2) Caprini Risk Assessment Model: Point Value = 1 Point Value = 2 Point Value = 3 Point Value = 5 Age 41-60 Minor surgery BMI > 25 kg/m2 Swollen legs Varicose veins or History of unexplained or recurrent spontaneous Oral contraceptives or hormone replacement Sepsis (< 1 month) Serious lung disease, including pneumonia (< 1 month) Abnormal pulmonary function Acute myocardial infarction Congestive heart failure (< 1 month) History of inflammatory bowel disease Medical patient at bed rest Age 61-74 Arthroscopic surgery Major open surgery (> 45 min) Laparoscopic surgery (> 45 min) Malignancy Confined to bed (> 72 hours) Immobilizing plaster cast Central venous access Age >= 75 History of VTE Family history of VTE Factor V Leiden Prothrombin [id number] Lupus anticoagulant Anticardiolipin antibodies Elevated serum homocysteine Heparin-induced thrombocytopenia Other congenital or acquired thrombophilia Stroke (< 1 month) Elective arthroplasty Hip, pelvis, or leg fracture Acute spinal cord injury (< 1 month) Prophylaxis Regimen: Total Risk Factor Score Risk Level Prophylaxis Regimen 0-1 Low Early ambulation 2 Moderate Order ONE of the following: *Sequential Compression Device (SCD) *Heparin 5000 units SQ BID 3-4 Higher Order ONE of the following medications: *Heparin 5000 units SQ TID *Enoxaparin/Lovenox 40 mg SQ daily (WT < 150 kg, CrCl > 30 mL/min) *Enoxaparin/Lovenox 30 mg SQ daily (WT < 150 kg, CrCl > 10-29 mL/min) *Enoxaparin/Lovenox 30 mg SQ BID (WT < 150 kg, CrCl > 30 mL/min) AND/OR *Sequential Compression Device (SCD) 5 or more Highest Order ONE of the following medications: *Heparin 5000 units SQ TID (Preferred with Epidurals) *Enoxaparin/Lovenox 40 mg SQ daily (WT < 150 kg, CrCl > 30 mL/min) *Enoxaparin/Lovenox 30 mg SQ daily (WT < 150 kg, CrCl > 10-29 mL/min) *Enoxaparin/Lovenox 30 mg SQ BID (WT < 150 kg, CrCl > 30 mL/min) AND *Sequential Compression Device (SCD) Assessment and Plan - Plan Mr. Connelly is a 58 yo M with PMH CAD, CHF, T2DM, HTN who presents with shortness of breath and multiple associated symptoms: Cardiovascular: CAD, CHF, Tachycardia, recent hypotension Impression: Unclear etiology of symptoms. Reported CHF history in association with CAD; s/p defibrillator placement. HR in sinus tachycardia since admission; BNP elevated >500. no obvious fluid overload on exam; perhaps tachycardia contribution s/p ACS rule out w/ troponins and EKGs in chest pain center CXR unremarkable -Cardiology (Dr. Oviedo) consulted -Will continue Furosemide 40mg daily -Will continue beta raman -Valsartan held per patient request -Will obtain new echocardiogram -patient declines ASA -Will monitor I/O and get daily weights -Will check TSH Respiratory Hemoptysis Impression: hemoptysis x2 in patient > 50 yrs; family history of cancer but not known lung cancer. CHF as probable etiology -Discussed benefits/risks of CT imaging; will plan to obtain pending cardiac evaluation -Will continue to monitor Endocrine DM Impression: uncontrolled. Cr 312 on admission. on home metformin. patient's associated extremity numbness and vision changes possibly DM related -Will start SS Novolog -Will check A1C Urinary changes Impression: recent decreased urination; change in urine culture -UA ordered- UA with nitrates, mod leuk esterase, moderate bacteria -Will start Rocephin -Urine culture pending -Hypomagnesia- s/p replacement Electrolytes -Hypomagnesia s/p replacement in ED DVT PPX -chemical prophylaxis declined Code Status: Full code
[2018-06-09] MEDS ORDERED: Dextrose 50% in Water 50 ML Vial IV.PUSH PRN (13:58)
[2018-06-09 15:42] LABS: Bacteria,Urine Moderate /hpf; Bilirubin,Urine Negative (Negative); Clarity,Urine Hazy (Clear); Color,Urine Amber (Yellw/Straw); Glucose,Urine (UA) 50 mg/dL (Negative); Leukocyte Esterase,Urine Moderate (Negative); Mucus,Urine Many /lpf (Occasional); Nitrite,Urine Positive (Negative); Specific Gravity,Urine 1.018 (1.002-1.035); Squamous Epithelial Cell,Urine <1 /hpf (0-5); Urobilinogen,Urine 4 or Greater mg/dL (Less than 2)
--- NOTE | 2018-06-09 16:10 | ECG ---
Date Performed: 06/09/2018 Time Performed: 05:09:50 PTAGE: 58 years EKG: SINUS TACHYCARDIA POSSIBLE LEFT ATRIAL ENLARGEMENT BORDERLINE LEFT AXIS DEVIATION POSSIBLE LEFT VENTRICULAR HYPERTROPHY NONSPECIFIC T-WAVE ABNORMALITY ABNORMAL ECG PREVIOUS TRACING : 06/09/2018 00.29 Since previous tracing, no significant change noted DOCTOR: Arsalan Rosa Interpretating Date/Time 06/09/2018 16:09:14
--- NOTE | 2018-06-09 16:14 | ECG ---
Date Performed: 06/09/2018 Time Performed: 00:29:19 PTAGE: 58 years EKG: SINUS TACHYCARDIA BORDERLINE LEFT AXIS DEVIATION POSSIBLE LEFT VENTRICULAR HYPERTROPHY NONS PECIFIC ST & T-WAVE ABNORMALITY ABNORMAL ECG INTERPRETATION BASED ON A DEFAULT AGE OF 40 YEARS Since PREVIOUS TRACING , no significant change noted DOCTOR: Arsalan Rosa Interpretating Date/Time 06/09/2018 16:13:39
--- NOTE | 2018-06-09 18:31 | ECG ---
Date Performed: 06/09/2018 Time Performed: 07:15:44 PTAGE: 58 years EKG: SINUS TACHYCARDIA POSSIBLE LEFT ATRIAL ENLARGEMENT NONSPECIFIC T-WAVE ABNORMALITY ABNORMAL RHYTHM ECG PREVIOUS TRACING : 06/09/2018 05.09 Since the previous tracing, no significant change noted DOCTOR: Orin Ureña Interpretating Date/Time 06/09/2018 18:30:51
[2018-06-09] MEDS: Insulin NovoLOG Aspart Correctional Sugar Inj SQ SCH ×2 (19:13→22:02)
[2018-06-09] MEDS: Senna/Docusate Sodium 8.6/50 MG Tablet PO SCH (21:58)
[2018-06-10] MEDS: Zolpidem Tartrate 5 MG Tablet PO PRN ×2 (00:09→23:21)
--- NOTE | 2018-06-10 05:48 | MB ---
cc: Frederick Oviedo MD, Hanscy MD DATE: 06/09/2018 REASON FOR CONSULT: Heart failure and shortness of breath. HISTORY OF PRESENT ILLNESS: Mr. Connelly is a 58-year-old gentleman with history of congestive heart failure, ischemic cardiomyopathy, previous defibrillator implant. This gentleman was living in [place] for years. He was having shortness of breath and edema. He is a diabetic, also. He has some neuropathy. He decided to come back last night, basically this morning, and was admitted. I was consulted for evaluation and management. The chart was reviewed. The patient was evaluated. SOCIAL HISTORY: The patient denies smoking and drinking. FAMILY HISTORY: Noncontributory to his current medical condition. MEDICATIONS: He is on nitroglycerin p.r.n. He is on Zofran. He is on Colace. He is on Tramadol, Diovan 20 mg twice a day. He is on Metoprolol 12.5 mg twice a day. REVIEW OF SYSTEMS: Currently, with shortness of breath on minimal activity. No chest pain, no chest discomfort. No fever. PHYSICAL EXAMINATION: GENERAL: Alert, fully oriented. VITAL SIGNS: Blood pressure 127/77, pulse 92, respiratory rate 20. LUNGS: Ventilated. CARDIOVASCULAR: S1, S2. Regular. ABDOMEN: Soft, obese. No masses. EXTREMITIES: No edema. ELECTROCARDIOGRAM: Sinus tachycardia, diffuse ST changes. LABORATORY DATA: Hemoglobin is 14.7, white blood cell 10.6. INR 1.2. Potassium is 3.9, creatinine 1.27 and BNP is 567. Troponin is 10.03. ASSESSMENT AND RECOMMENDATIONS: Mr. Connelly has heart failure. The last echocardiogram in 09/2007 indicated ejection fraction of around 20%. He has a defibrillator implanted. The gentleman subsequently moved to [place]. He is not on optimal medical treatment. He is only on 20 of Diovan twice a day. He is on a minimal beta raman. He has CHF decompensation. Medications need to be optimized. I am going to stop the Diovan. I am going to initiate Entresto. I am going to discontinue metoprolol and put him on Coreg. He is on Lasix twice a day; I am going to cut it to 40 mg once a day. His creatinine is 1.23. His potassium is 3.4. I am going to add Aldactone. An echocardiogram will be requested to evaluate wall motion and valvular function. Case is discussed with the gentleman. Medications need to be optimized, then further decision about management be taken. His condition is off care. MD KORI Danielle/clara/macey , 07:45 PM , 07:53 PM
--- NOTE | 2018-06-10 08:34 | P.PNCA ---
Subjective Interval history: Feels ok. Physical Exam Vital signs: Vital Signs 06/09/18 11:24 06/09/18 13:49 06/09/18 13:51 Temperature Pulse Rate 105 H 110 H Respiratory Rate 20 18 Blood Pressure 120/76 122/82 Pulse Oximetry 99 97 97 06/09/18 14:46 06/09/18 14:50 06/09/18 16:18 Temperature Pulse Rate 116 H 106 H Respiratory Rate 20 Blood Pressure 123/87 123/87 Pulse Oximetry 98 99 98 06/09/18 19:00 06/09/18 20:00 06/09/18 21:51 Temperature 98.4 F Pulse Rate 92 H 120 H Respiratory Rate 18 20 Blood Pressure 127/77 125/84 Pulse Oximetry 99 99 97 06/09/18 23:33 06/10/18 00:00 06/10/18 03:41 Temperature 99.0 F 98.2 F Pulse Rate 107 H 107 H 94 H Respiratory Rate 18 20 Blood Pressure 106/64 93/55 L Pulse Oximetry 94 L 92 L 06/10/18 04:00 Temperature Pulse Rate 88 Respiratory Rate Blood Pressure Pulse Oximetry Intake & Output 06/09/18 06/10/18 06/10/18 18:59 06:59 18:59 Intake Total 600 / 600 480 / 480 Output Total 400 / 400 Balance 200 / 200 480 / 480 Weight 237 lb 7.005 oz Intake: Oral 600 / 600 480 / 480 Output: Urine 400 / 400 Other: # Voids 2 3 Date of Last Bowel Movement 06/09/18 - Constitutional no acute distress - Routine HEENT Exam Head: Present: normocephalic - Routine Neck Exam Present: supple - Routine Respiratory Exam Present: crackles (Bibasilar), diminished air movement - Routine Cardiovascular Exam Present: RRR - Routine Abdominal Exam Present: soft - Routine Skin Exam Present: intact - Routine Neurological Exam Present: alert, oriented X3 - Detailed Neurological Exam: Coma Scale Eye Opening: Spontaneous - Routine Psychiatric Exam Present: normal affect Assessment and Plan - Assessment (1) H/O CHF Code(s): Z86.79 - Personal history of other diseases of the circulatory system Status: Acute - Plan Slow improvement overnight. Dyspnea mildly improved. To start spironolactone this a.m. Medications modified. Continue current therapy at this time per my discussion with Dr. Oviedo.
--- NOTE | 2018-06-10 08:54 | P.PNIM ---
Subjective Interval history: f/u; CHF exacerbation in no acute distress. sob is improving slowly. has occasional cough. no fever. Physical Exam Vital signs: Vital Signs 06/09/18 11:24 06/09/18 13:49 06/09/18 13:51 Temperature Pulse Rate 105 H 110 H Respiratory Rate 20 18 Blood Pressure 120/76 122/82 Pulse Oximetry 99 97 97 06/09/18 14:46 06/09/18 14:50 06/09/18 16:18 Temperature Pulse Rate 116 H 106 H Respiratory Rate 20 Blood Pressure 123/87 123/87 Pulse Oximetry 98 99 98 06/09/18 19:00 06/09/18 20:00 06/09/18 21:51 Temperature 98.4 F Pulse Rate 92 H 120 H Respiratory Rate 18 20 Blood Pressure 127/77 125/84 Pulse Oximetry 99 99 97 06/09/18 23:33 06/10/18 00:00 06/10/18 03:41 Temperature 99.0 F 98.2 F Pulse Rate 107 H 107 H 94 H Respiratory Rate 18 20 Blood Pressure 106/64 93/55 L Pulse Oximetry 94 L 92 L 06/10/18 04:00 Temperature Pulse Rate 88 Respiratory Rate Blood Pressure Pulse Oximetry Intake & Output 06/09/18 06/10/18 06/10/18 18:59 06:59 18:59 Intake Total 600 / 600 480 / 480 Output Total 400 / 400 Balance 200 / 200 480 / 480 Weight 107.7 kg Intake: Oral 600 / 600 480 / 480 Output: Urine 400 / 400 Other: # Voids 2 3 Date of Last Bowel Movement 06/09/18 - Constitutional no acute distress - Routine Respiratory Exam Present: CTA bilaterally - Routine Cardiovascular Exam Present: RRR - Routine Abdominal Exam Present: soft - Routine Extremities Exam Comments: no pedal edema. - Routine Neurological Exam Present: alert, oriented X3 Results - Labs CBC & Chem 7: 06/10/18 08:58 06/10/18 08:58 Laboratory Results - last 24 hr 06/09/18 06/09/18 06/09/18 08:25 14:55 16:49 POC Glucose 289 H Total Creatine Kinase 53 Troponin I 0.03 Urine Color Janice Urine Clarity Hazy H Urine pH 5.0 Ur Specific [place] 1.018 Urine Protein 30 H Urine Glucose (UA) 50 Urine Ketones Negative Urine Occult Blood Negative Urine Nitrate Positive H Urine Bilirubin Negative Urine Urobilinogen 4 or greater Ur Leukocyte Esterase Moderate H Urine RBC 1 Urine WBC 20 H Ur Squamous Epith Cells <1 Urine Bacteria Moderate H Urine Mucus Many H Micro UA Comment Culture indicated Urine Culture Comments Culture indicated 06/09/18 06/10/18 06/10/18 21:58 03:35 07:44 POC Glucose 334 H 127 H 173 H Total Creatine Kinase Troponin I Urine Color Urine Clarity Urine pH Ur Specific [place] Urine Protein Urine Glucose (UA) Urine Ketones Urine Occult Blood Urine Nitrate Urine Bilirubin Urine Urobilinogen Ur Leukocyte Esterase Urine RBC Urine WBC Ur Squamous Epith Cells Urine Bacteria Urine Mucus Micro UA Comment Urine Culture Comments Assessment and Plan - Plan CAD, CHF, Tachycardia, recent hypotension Impression: Unclear etiology of symptoms. Reported CHF history in association with CAD; s/p defibrillator placement. BNP elevated >500. no obvious fluid CXR unremarkable -Cardiology (Dr. Oviedo) consulted -Will continue Furosemide , Coreg and Entresto- Aldactone was added. -Will obtain new echocardiogram -patient declines ASA -Will monitor I/O and get daily weights Respiratory Hemoptysis Impression: hemoptysis x2 in patient > 50 yrs; family history of cancer but not known lung cancer. CHF as probable etiology -CT chest today. -Will continue to monitor Endocrine DM Impression: uncontrolled. on home metformin. patient's associated extremity numbness and vision changes possibly DM related -started SS Novolog -will consider adding long-acting insulin while inpatient. -Will check A1C Urinary changes Impression: recent decreased urination; change in urine culture -UA ordered- UA with nitrates, mod leuk esterase, moderate bacteria -continue Rocephin -Urine culture pending -Hypomagnesia- s/p replacement Electrolytes -Hypomagnesia s/p replacement in ED DVT PPX -chemical prophylaxis declined Discharge Planning: within the next 24-48 hrs if continues to improve-pending CT chest.
[2018-06-10] MEDS: Aspirin 325 MG Tablet PO SCH (09:37)
[2018-06-10] MEDS: Spironolactone 25 MG Tablet PO SCH (09:38)
[2018-06-10] MEDS: Senna/Docusate Sodium 8.6/50 MG Tablet PO SCH ×2 (09:39→21:07)
[2018-06-10 09:40] LABS: Baso # (Auto) 0.1 th/mm3 (0.0-0.2); Baso % (Auto) 0.8 % (0.0-2.0); Eos # (Auto) 0.4 th/mm3 (0.0-0.4); Eos % (Auto) 4.8 % (0.0-4.0); Hematocrit 42.6 % (39.0-51.0); Hemoglobin 14.5 gm/dL (13.0-17.0); Lymph # (Auto) 1.5 th/mm3 (1.0-4.8); Lymph % (Auto) 18.5 % (9.0-44.0); Mean Corpuscular Hemoglobin 30.2 pg (27.0-34.0); Mean Corpuscular Volume 88.9 fL (80.0-100.0); Mean Platelet Volume 7.6 fL (7.0-11.0); Mono # (Auto) 0.7 th/mm3 (0.0-0.9); Mono % (Auto) 8.6 % (0.0-8.0); Neut # (Auto) 5.6 th/mm3 (1.8-7.7); Neut % (Auto) 67.3 % (16.0-70.0); Platelet Count 294 th/mm3 (150-450); Red Blood Count 4.79 mil/mm3 (4.50-5.90); Red Cell Distribution Width 13.7 % (11.6-17.2); White Blood Count 8.3 th/mm3 (4.0-11.0)
[2018-06-10] MEDS: Insulin NovoLOG Aspart Correctional Sugar Inj SQ SCH ×6 (09:42→21:05)
--- NOTE | 2018-06-10 10:13 | CT ---
EXAM DATE: 06/10/2018 10:04 AM EDT AGE/SEX: 58 years / Male INDICATIONS: Shortness of breath, hemoptysis. CLINICAL DATA: This is the patient's initial encounter. Patient reports that signs and symptoms have been present for 4 - 6 days and indicates a pain score of 0/10. MEDICAL/SURGICAL HISTORY: Hypertension. Congestive heart failure. Chronic obstructive pulmonary d isease. Cardiac disease Defibrillator. RADIATION DOSE: 9.25 CTDI (mGy) COMPARISON: [facility], CHEST 1V SINGLE AP, 06/09/2018. . TECHNIQUE: Multiple contiguous axial images were obtained through the chest without contrast. Image s were obtained in suspended respiration using multiple row detector helical technique. Using automa nelson exposure control and adjustment of the mA and/or kV according to patient size, radiation dose was kept as low as reasonably achievable to obtain optimal diagnostic quality images. DICOM format imag e data is available electronically for review and comparison. FINDINGS: Lungs: There are patchy alveolar infiltrates in the left perihilar region as well as milder areas in the right middle lobe and right lower lobe. There are no distinct masses or nodules. Mediastinum: There are multiple small pretracheal and periaortic lymph nodes. The largest of these me asures up to approximately 1.5 cm. There is no definite hilar adenopathy on this noncontrast study. C oronary artery stent catheter is noted in the left anterior descending coronary artery. A transvenous pacer is present. There is mild cardiomegaly. Pleurae: There are small bilateral pleural effusions. Axillae: Unremarkable. Bony Structures: Unremarkable. Miscellaneous: The examination was extended to include the upper abdomen, and both adrenal glands ar e normal in size and configuration. 1. Bilateral alveolar opacities greatest in the left perihilar region. These are nonspecific and may be infectious or inflammatory. 2. Mild mediastinal adenopathy with numerous small lymph nodes which are nonspecific. 3. Small bilateral pleural effusions. Electronically signed by: Joseph Menezes MD 06/10/2018 10:12 AM EDT
[2018-06-10] MEDS: Furosemide 40 MG Tablet PO SCH (10:16)
[2018-06-10 10:27] LABS: Alanine Aminotransferase 20 U/L (12-78); Albumin 3.1 g/dL (3.4-5.0); Anion Gap 8 meq/L (5-15); Aspartate Aminotransferase 12 U/L (15-37); Blood Urea Nitrogen 13 mg/dL (7-18); Calcium 8.5 mg/dL (8.5-10.1); Carbon Dioxide 27.8 meq/L (21.0-32.0); Chloride 101 meq/L (98-107); Glomerular Filtration Rate 63 mL/min (>89); Glucose,Random 193 mg/dL (74-106); Potassium 4.3 meq/L (3.5-5.1); Sodium 137 meq/L (136-145)
[2018-06-10 10:54] LABS: Alkaline Phosphatase 56 U/L (45-117); Total Protein 7.1 g/dL (6.4-8.2)
[2018-06-10] MEDS: Azithromycin 250 MG Tablet PO SCH (15:32)
[2018-06-10 17:54] LABS: Hemoglobin A1c 13.1 % (4.3-6.0)
[2018-06-11] MEDS: Insulin NovoLOG Aspart Correctional Sugar Inj SQ SCH ×5 (02:18→20:40)
[2018-06-11] MEDS: Spironolactone 25 MG Tablet PO SCH (09:31)
[2018-06-11] MEDS: Aspirin 325 MG Tablet PO SCH (09:32)
[2018-06-11] MEDS: Senna/Docusate Sodium 8.6/50 MG Tablet PO SCH ×2 (09:32→20:41)
[2018-06-11] MEDS: Furosemide 40 MG Tablet PO SCH (09:33)
[2018-06-11] MEDS: Azithromycin 250 MG Tablet PO SCH (09:35)
--- NOTE | 2018-06-11 10:56 | P.PNIM ---
Subjective Interval history: f/u;CHF in no acute distress. however still with exertional dyspnea and says that ' it hasn't improved as much '. no fever or chest pain. Physical Exam Vital signs: Vital Signs 06/10/18 12:00 06/10/18 16:00 06/10/18 16:01 Temperature 98.0 F 97.3 F L Pulse Rate 98 H 94 H 93 H Respiratory Rate 17 17 Blood Pressure 103/62 96/63 L Pulse Oximetry 95 96 06/10/18 20:00 06/11/18 00:00 06/11/18 04:00 Temperature 98.0 F 98.1 F 97.7 F Pulse Rate 104 H 104 H 93 H Respiratory Rate 19 18 18 Blood Pressure 104/63 99/60 L 101/60 Pulse Oximetry 94 L 94 L 94 L 06/11/18 08:00 Temperature 97.2 F L Pulse Rate 101 H Respiratory Rate 20 Blood Pressure 112/74 Pulse Oximetry 95 Intake & Output 06/10/18 06/11/18 06/11/18 18:59 06:59 18:59 Intake Total 960 / 960 580 / 580 Balance 960 / 960 580 / 580 Weight 108.3 kg Intake: IV 100 / 100 Rocephin Inj 1,000 MG In NS Inj 100 / 100 100 ML @ 200 mls/hr IV.SIG Q24H [facility] Rx#:[id number] Oral 960 / 960 480 / 480 Other: # Voids 3 4 Date of Last Bowel Movement 06/09/18 06/10/18 # Bowel Movements 0 - Constitutional no acute distress - Routine Respiratory Exam Present: CTA bilaterally - Routine Cardiovascular Exam Present: RRR - Routine Abdominal Exam Present: soft - Routine Extremities Exam Comments: no pedal edema. - Routine Neurological Exam Present: alert, oriented X3 Results - Labs CBC & Chem 7: 06/10/18 08:58 06/10/18 08:58 Laboratory Results - last 24 hr 06/09/18 06/10/18 06/10/18 14:55 08:58 08:58 POC Glucose Hemoglobin A1c Total Bilirubin 0.8 Alkaline Phosphatase 56 Total Protein 7.1 TSH 1.440 Urine Color Janice Urine Clarity Hazy H Urine pH 5.0 Ur Specific [place] 1.018 Urine Protein 30 H Urine Glucose (UA) 50 Urine Ketones Negative Urine Occult Blood Negative Urine Nitrate Positive H Urine Bilirubin Negative Urine Urobilinogen 4 or greater Ur Leukocyte Esterase Moderate H Urine RBC 1 Urine WBC 20 H Ur Squamous Epith Cells <1 Urine Bacteria Moderate H Urine Mucus Many H Micro UA Comment Culture indicated Urine Culture Comments Culture indicated HIV 1&2 Ab/P24 Ag 4thGn Nonreactive 06/10/18 06/10/18 06/10/18 08:58 11:41 16:54 POC Glucose 337 H 191 H Hemoglobin A1c 13.1 H Total Bilirubin Alkaline Phosphatase Total Protein TSH Urine Color Urine Clarity Urine pH Ur Specific [place] Urine Protein Urine Glucose (UA) Urine Ketones Urine Occult Blood Urine Nitrate Urine Bilirubin Urine Urobilinogen Ur Leukocyte Esterase Urine RBC Urine WBC Ur Squamous Epith Cells Urine Bacteria Urine Mucus Micro UA Comment Urine Culture Comments HIV 1&2 Ab/P24 Ag 4thGn 06/10/18 06/11/18 06/11/18 21:05 02:16 07:44 POC Glucose 254 H 122 H 180 H Hemoglobin A1c Total Bilirubin Alkaline Phosphatase Total Protein TSH Urine Color Urine Clarity Urine pH Ur Specific [place] Urine Protein Urine Glucose (UA) Urine Ketones Urine Occult Blood Urine Nitrate Urine Bilirubin Urine Urobilinogen Ur Leukocyte Esterase Urine RBC Urine WBC Ur Squamous Epith Cells Urine Bacteria Urine Mucus Micro UA Comment Urine Culture Comments HIV 1&2 Ab/P24 Ag 4thGn Microbiology 06/09/18 14:55 Clean Catch Urine Urine Culture - Preliminary Escherichia coli Assessment and Plan - Plan CAD, CHF, Tachycardia, recent hypotension Impression: Unclear etiology of symptoms. Reported CHF history in association with CAD; s/p defibrillator placement. BNP elevated >500. no obvious fluid CXR unremarkable -Cardiology (Dr. Oviedo) consulted -Will continue Furosemide , Coreg and Entresto- -Aldactone was added by cardiology;however the patient with history of gynecomastia- will hold it for now. -follow echocardiogram -patient declines ASA -Will monitor I/O and get daily weights Respiratory Hemoptysis Impression: hemoptysis x2 in patient > 50 yrs; family history of cancer but not known lung cancer. CHF as probable etiology -CT chest with possible pneumonia -continue with antibiotics. -Will continue to monitor Endocrine DM Impression: uncontrolled. on home metformin. patient's associated extremity numbness and vision changes possibly DM related -started SS Novolog -will add levemir while inpatient. -A1c 13.1 Urinary changes Impression: recent decreased urination; change in urine culture -UA ordered- UA with nitrates, mod leuk esterase, moderate bacteria -UC with e-coli -dc Rocephin and start on levaquin Electrolytes -Hypomagnesia s/p replacement in ED DVT PPX -chemical prophylaxis declined Discharge Planning: within the next 24-48 hrs if continues to improve-
--- NOTE | 2018-06-11 12:32 | ECHRPT ---
Indication: CARDIOMYOPATHY CONCLUSIONS The left ventricular systolic function is severely reduced with an estimated ejection fraction less than 20%. Severely dilated left ventricle. There is global left ventricular dysfunction. Mild mitral valve regurgitation. There is trace tricuspid valve regurgitation. Normal estimated pulmonary pressures. BP: / HR: Rhythm: Sinus MEASUREMENTS (Male / Female) Normal Values Technical Quality:Fair 2D ECHO LV Diastolic Diameter PLAX 7.2 cm 4.2 - 5.9 / 3.9 - 5.3 cm LV Systolic Diameter PLAX 6.9 cm IVS Diastolic Thickness 1.0 cm 0.6 - 1.0 / 0.6 - 0.9 cm LVPW Diastolic Thickness 1.0 cm 0.6 - 1.0 / 0.6 - 0.9 cm LV Relative Wall Thickness 0.3 RV Internal Dim ED PLAX 2.8 cm LVOT Diameter 2.0 cm LA Systolic Diameter LX 4.6 cm 3.0 - 4.0 / 2.7 - 3.8 cm LV Ejection Fraction MOD 4C 20.9 % LV Ejection Fraction 4C AL 20.5 % M-MODE Aortic Root Diameter MM 3.0 cm LA Systolic Diameter MM 4.4 cm LA Ao Ratio MM 1.5 AV Cusp Separation MM 2.1 cm DOPPLER AV Peak Velocity 88.2 cm/s AV Peak Gradient 3.1 mmHg LVOT Peak Velocity 77.5 cm/s LVOT Peak Gradient 2.4 mmHg AV Area Cont Eq pk 2.8 cm MV Area PHT 5.6 cm Mitral E Point Velocity 99.2 cm/s Mitral A Point Velocity 42.0 cm/s Mitral E to A Ratio 2.4 TR Peak Velocity 243.0 cm/s TR Peak Gradient 23.6 mmHg Right Atrial Pressure 10.0 mmHg Pulmonary Artery Systolic Pressu 33.6 mmHg Right Ventricular Systolic Press 33.6 mmHg PV Peak Velocity 63.8 cm/s PV Peak Gradient 1.6 mmHg FINDINGS LEFT VENTRICLE The left ventricular systolic function is severely reduced with an estimated ejection fraction less than 20%. Severely dilated left ventricle. There is global left ventricular dysfunction. RIGHT VENTRICLE Normal right ventricular size and systolic function. LEFT ATRIUM The left atrial size is normal. RIGHT ATRIUM The right atrial size is normal. ATRIAL SEPTUM Normal atrial septal thickness without atrial level shunting by limited color doppler interrogation. AORTA The aortic root and proximal ascending aorta are normal in size on limited imaging. MITRAL VALVE Structurally normal mitral valve. Mild mitral valve regurgitation. AORTIC VALVE Trileaflet aortic valve. No aortic valve stenosis or regurgitation. TRICUSPID VALVE Structurally normal tricuspid valve. There is trace tricuspid valve regurgitation. Normal estimated pulmonary pressures. PULMONARY VALVE No pulmonary valve regurgitation or stenosis. VESSELS The inferior vena cava is normal in size. PERICARDIUM No pericardial effusion. Gino Massey MD, FACC (Electronically Signed) Final Date:11 June 2018 12:31
[2018-06-11] MEDS: Levofloxacin 500 mg Premix Inj 500 MG/100 ML PIGGYBACK IV.SIG SCH (12:53)
[2018-06-12] MEDS: Insulin NovoLOG Aspart Correctional Sugar Inj SQ SCH ×5 (02:19→21:48)
[2018-06-12] MEDS: Furosemide 40 MG Tablet PO SCH (09:21)
--- NOTE | 2018-06-12 10:32 | P.PNCA ---
Subjective Interval history: Mild to moderately dyspneic, even at rest. PND last night. No syncope, palpitations, dizziness. Occasional < 2 minute left parasternal CP's, no associated nausea, diaphoresis. Physical Exam Vital signs: Vital Signs 06/11/18 12:00 06/11/18 16:00 06/11/18 16:59 Temperature 97.8 F 97.8 F Pulse Rate 96 H 85 105 H Respiratory Rate 20 20 Blood Pressure 106/59 L 98/60 L Pulse Oximetry 94 L 95 06/11/18 20:00 06/12/18 00:00 06/12/18 04:00 Temperature 98.5 F 98.4 F 98.2 F Pulse Rate 102 H 106 H 80 Respiratory Rate 20 17 16 Blood Pressure 103/62 110/62 118/70 Pulse Oximetry 95 95 95 Intake & Output 06/11/18 06/12/18 06/12/18 18:59 06:59 18:59 Intake Total 480 / 480 Balance 480 / 480 Weight 108.3 kg Intake: Oral 480 / 480 Other: Post Void Residual 250 # Voids 4 1 Date of Last Bowel Movement 06/10/18 06/10/18 - Constitutional no acute distress - Routine Neck Exam Absent: JVD - Routine Respiratory Exam Present: crackles Comments: bibasilar - Routine Cardiovascular Exam Present: RRR, S1, S2. Absent: murmur, gallop - Routine Abdominal Exam Present: soft, normoactive bowel sounds. Absent: tenderness, organomegaly - Routine Extremities Exam Absent: cyanosis, clubbing, edema Assessment and Plan - Assessment (1) Ischemic cardiomyopathy Code(s): I25.5 - Ischemic cardiomyopathy Status: Chronic Plan: Stable overnight. Continued dyspnea. Few rales on current exam. Admission chest x-ray clear. EF 20% by echo, apparently unchanged from last year. Patient declining spironolactone. Patient also reluctant to be prescribed Entresto due to lack of coverage by his insurance. REC stop spironolactone, recheck CXR; as patient declining Entresto, change it to Losartan 100 mg qd recommend and stressed to patient regular outpatient f/u with Dr. Oviedo ; will f/u as needed, can discharge if CXR clear recommend outpatient heart transplant or LVAD evaluation at [facility] or [place] as patient NYHA Class IV with low EF (2) Coronary artery disease Code(s): I25.10 - Atherosclerotic heart disease of [place] coronary artery without angina pectoris Status: Chronic Plan: Overall stable CAD status. Apparent history of coronary stenting 2002. Cath in August 2017 in [place] negative for high grade CAD according to patient. Recommend medical therapy. Ongoing CP's atypical for ischemia. (3) Hypertension Code(s): I10 - Essential (primary) hypertension Status: Chronic Plan: Stable. Normotensive. - Plan Code Status: full code Discussed Condition With: patient (2) Coronary artery disease Qualifiers: Coronary Disease-Associated Artery/Lesion type: [place] artery [place] vs. transplanted heart: [place] heart Associated angina: with unspecified angina Qualified Code(s): I25.119 - Atherosclerotic heart disease of [place] coronary artery with unspecified angina pectoris (3) Hypertension Qualifiers: Hypertension type: essential hypertension Qualified Code(s): I10 - Essential (primary) hypertension
--- NOTE | 2018-06-12 10:59 | XR ---
EXAM DATE: 06/12/2018 10:52 AM EDT AGE/SEX: 58 years / Male INDICATIONS: Shortness of breath and chest pain. CLINICAL DATA: This is the patient's subsequent encounter. Patient reports that signs and symptoms h ave been present for 4 - 6 days and indicates a pain score of 3/10. MEDICAL/SURGICAL HISTORY: Diabetes mellitus type II. Hypertension. Carcinoma, breast. COPD. Cardiac disease. CHF. Defibrillator. Bilateral mastectomy. [place] [facility] [place]. . FINDINGS: Left subclavian transvenous pacer wire has not changed. Left perihilar infiltrate is present not pres ent previously. Heart and mediastinum are unremarkable for technique. CONCLUSION: Left perihilar infiltrate. Electronically signed by: Paulino Ramirez MD 06/12/2018 10:58 AM EDT
--- NOTE | 2018-06-12 11:03 | P.PNIM ---
Subjective Interval history: f/u; CHF in no acute distress. but still with some sob and exertional dyspnea. no fever. Physical Exam Vital signs: Vital Signs 06/11/18 12:00 06/11/18 16:00 06/11/18 16:59 Temperature 97.8 F 97.8 F Pulse Rate 96 H 85 105 H Respiratory Rate 20 20 Blood Pressure 106/59 L 98/60 L Pulse Oximetry 94 L 95 06/11/18 20:00 06/12/18 00:00 06/12/18 04:00 Temperature 98.5 F 98.4 F 98.2 F Pulse Rate 102 H 106 H 80 Respiratory Rate 20 17 16 Blood Pressure 103/62 110/62 118/70 Pulse Oximetry 95 95 95 Intake & Output 06/11/18 06/12/18 06/12/18 18:59 06:59 18:59 Intake Total 480 / 480 Balance 480 / 480 Weight 108.3 kg Intake: Oral 480 / 480 Other: Post Void Residual 250 # Voids 4 1 Date of Last Bowel Movement 06/10/18 06/10/18 - Constitutional mild distress - Routine Respiratory Exam Present: CTA bilaterally - Routine Cardiovascular Exam Present: RRR - Routine Abdominal Exam Present: soft - Routine Extremities Exam Comments: no pedal edema. - Routine Neurological Exam Present: alert, oriented X3 Results - Labs CBC & Chem 7: 06/10/18 08:58 06/10/18 08:58 Laboratory Results - last 24 hr 06/11/18 06/11/18 06/11/18 12:07 17:24 20:35 POC Glucose 312 H 159 H 260 H 06/12/18 06/12/18 02:12 09:20 POC Glucose 167 H 181 H Microbiology 06/09/18 14:55 Clean Catch Urine Urine Culture - Preliminary Escherichia coli Assessment and Plan - Plan CAD, CHF, Tachycardia, recent hypotension Impression: Unclear etiology of symptoms. Reported CHF history in association with CAD; s/p defibrillator placement. BNP elevated >500. no obvious fluid CXR unremarkable -Cardiology (Dr. Oviedo) consulted -Will continue Furosemide , Coreg ; Entresto will be switched to Losartan since the patient has a problem with insurance coverage; per cardiology. -Aldactone was added by cardiology;however the patient with history of gynecomastia- will dc. -patient declines ASA -Will monitor I/O and get daily weights -walk test today. -CXR today pending. -f/u with cardiology as outpatient for heart transplant vs LVAD. Respiratory Hemoptysis Impression: hemoptysis x2 in patient > 50 yrs; family history of cancer but not known lung cancer. CHF as probable etiology -CT chest with possible pneumonia -continue with antibiotics. -Will continue to monitor Endocrine DM Impression: uncontrolled. on home metformin. patient's associated extremity numbness and vision changes possibly DM related -started SS Novolog - added levemir while inpatient. -A1c 13.1 Urinary changes Impression: recent decreased urination; change in urine culture -UA ordered- UA with nitrates, mod leuk esterase, moderate bacteria -UC with e-coli -dc Rocephin and start on levaquin Electrolytes -Hypomagnesia s/p replacement in ED DVT PPX -chemical prophylaxis declined Discharge Planning: within the next 24-48 hrs if continues to improve-
[2018-06-12] MEDS: Aspirin 325 MG Tablet PO SCH (12:39)
[2018-06-12] MEDS: Senna/Docusate Sodium 8.6/50 MG Tablet PO SCH ×2 (12:40→21:44)
[2018-06-12] MEDS: Levofloxacin 500 mg Premix Inj 500 MG/100 ML PIGGYBACK IV.SIG SCH (12:45)
[2018-06-13] MEDS: Insulin NovoLOG Aspart Correctional Sugar Inj SQ SCH ×5 (03:12→22:44)
[2018-06-13] MEDS: Furosemide 40 MG Tablet PO SCH (08:55)
[2018-06-13] MEDS: Aspirin 325 MG Tablet PO SCH (08:56)
[2018-06-13] MEDS: Senna/Docusate Sodium 8.6/50 MG Tablet PO SCH ×2 (08:57→23:19)
--- NOTE | 2018-06-13 11:18 | P.PNIM ---
Subjective Interval history: f/u; chf in no acute distress. has some exertional dyspnea. no chest pain. no fever. Physical Exam Vital signs: Vital Signs 06/12/18 12:00 06/12/18 15:51 06/12/18 16:00 Temperature 98 F 98.5 F Pulse Rate 97 H 98 H Respiratory Rate 20 20 Blood Pressure 114/78 102/60 Pulse Oximetry 96 96 Pulse Oximetry [Exertion on Room Air] 99 Pulse Oximetry [Resting on Room Air] 96 06/12/18 19:46 06/12/18 20:00 06/13/18 00:00 Temperature 97.9 F 97.9 F Pulse Rate 98 H 90 87 Respiratory Rate 18 17 Blood Pressure 130/78 122/60 Pulse Oximetry 97 96 Pulse Oximetry [Exertion on Room Air] Pulse Oximetry [Resting on Room Air] 06/13/18 03:27 06/13/18 03:45 06/13/18 04:00 Temperature 98.0 F 98 F Pulse Rate 78 106 H 99 H Respiratory Rate 16 18 Blood Pressure 120/62 104/69 Pulse Oximetry 95 97 Pulse Oximetry [Exertion on Room Air] Pulse Oximetry [Resting on Room Air] 06/13/18 08:00 Temperature Pulse Rate 100 H Respiratory Rate Blood Pressure Pulse Oximetry 97 Pulse Oximetry [Exertion on Room Air] Pulse Oximetry [Resting on Room Air] Intake & Output 06/12/18 06/13/18 06/13/18 18:59 06:59 18:59 Weight 107.7 kg Other: # Voids 2 - Constitutional no acute distress - Routine Respiratory Exam Present: CTA bilaterally - Routine Cardiovascular Exam Present: RRR - Routine Abdominal Exam Present: soft - Routine Extremities Exam Comments: no pedal edema. - Routine Neurological Exam Present: alert, oriented X3 Results - Labs CBC & Chem 7: 06/13/18 11:50 06/13/18 11:50 Laboratory Results - last 24 hr 06/12/18 06/12/18 06/12/18 13:17 17:56 19:52 POC Glucose 290 H 144 H 265 H 06/13/18 06/13/18 03:11 07:53 POC Glucose 171 H 193 H Microbiology 06/09/18 14:55 Clean Catch Urine Urine Culture - Final Escherichia coli Assessment and Plan - Plan CAD, CHF, Tachycardia, recent hypotension Reported CHF history in association with CAD; s/p defibrillator placement. BNP elevated >500. no obvious fluid questionable V-tach on telemetry last night. -Cardiology (Dr. Oviedo) consulted -Will continue Furosemide , Coreg ; Entresto ( patient says that it may not be covered by his insurance but he will pay for it). -Aldactone was added by cardiology;however the patient with history of gynecomastia- therefore dc'ed. -will check the electrolytes/ magnesium level today. -will interrogate the ICD ( d/w today). -patient declines ASA -passed the walk test. -f/u with cardiology as outpatient for heart transplant vs LVAD. Hemoptysis Impression: hemoptysis x2 in patient > 50 yrs; family history of cancer but not known lung cancer. CHF as probable etiology -CT chest with possible pneumonia -continue with antibiotics. -Will continue to monitor DM uncontrolled. on home metformin. patient's associated extremity numbness and vision changes possibly DM related -started SS Novolog - added levemir while inpatient. -A1c 13.1 Urinary changes Impression: recent decreased urination; change in urine culture -UA ordered- UA with nitrates, mod leuk esterase, moderate bacteria -UC with e-coli -continue levaquin DVT PPX -chemical prophylaxis declined Discharge Planning: home-likely tomorrow if stable-pending ICD interrogation.
[2018-06-13 12:44] LABS: Baso # (Auto) 0.1 th/mm3 (0.0-0.2); Baso % (Auto) 0.7 % (0.0-2.0); Eos # (Auto) 0.4 th/mm3 (0.0-0.4); Eos % (Auto) 4.2 % (0.0-4.0); Hematocrit 45.9 % (39.0-51.0); Hemoglobin 15.3 gm/dL (13.0-17.0); Lymph # (Auto) 1.5 th/mm3 (1.0-4.8); Mean Corpuscular HGB Conc 33.3 % (32.0-36.0); Mean Corpuscular Hemoglobin 29.5 pg (27.0-34.0); Mean Corpuscular Volume 88.7 fL (80.0-100.0); Mean Platelet Volume 7.8 fL (7.0-11.0); Mono # (Auto) 0.7 th/mm3 (0.0-0.9); Mono % (Auto) 7.6 % (0.0-8.0); Neut # (Auto) 6.5 th/mm3 (1.8-7.7); Neut % (Auto) 71.5 % (16.0-70.0); Platelet Count 324 th/mm3 (150-450); Red Blood Count 5.17 mil/mm3 (4.50-5.90); Red Cell Distribution Width 13.5 % (11.6-17.2); White Blood Count 9.1 th/mm3 (4.0-11.0)
[2018-06-13] MEDS: Levofloxacin 500 mg Premix Inj 500 MG/100 ML PIGGYBACK IV.SIG SCH (13:01)
[2018-06-13 13:07] LABS: Calcium 8.7 mg/dL (8.5-10.1); Carbon Dioxide 26.2 meq/L (21.0-32.0); Magnesium 2.1 mg/dL (1.5-2.5); Potassium 4.3 meq/L (3.5-5.1)
[2018-06-14] MEDS: Insulin NovoLOG Aspart Correctional Sugar Inj SQ SCH ×5 (04:22→20:01)
[2018-06-14] MEDS: Senna/Docusate Sodium 8.6/50 MG Tablet PO SCH ×2 (09:15→20:01)
[2018-06-14] MEDS: Furosemide 40 MG Tablet PO SCH (09:15)
[2018-06-14] MEDS: Aspirin 325 MG Tablet PO SCH (09:17)
[2018-06-14] MEDS: Levofloxacin 500 mg Premix Inj 500 MG/100 ML PIGGYBACK IV.SIG SCH (13:24)
--- NOTE | 2018-06-14 15:35 | P.PN ---
Subjective Interval history: f/u; chf patient sitting on cough on room air appear to be in no acute distress. reports worsening exertional dyspnea no chest pain. no fever. Physical Exam Vital signs: Vital Signs 06/13/18 16:00 06/13/18 19:44 06/13/18 19:46 Temperature 97.5 F L 98.1 F Pulse Rate 110 H 105 H 101 H Respiratory Rate 20 18 Blood Pressure 117/78 108/68 Pulse Oximetry 97 96 06/13/18 23:56 06/14/18 00:00 06/14/18 03:43 Temperature 98.5 F Pulse Rate 96 H 101 H 88 Respiratory Rate 20 Blood Pressure 99/69 L Pulse Oximetry 95 06/14/18 04:00 06/14/18 08:00 06/14/18 12:00 Temperature 98.0 F 98.0 F 98.1 F Pulse Rate 102 H 92 H 101 H Respiratory Rate 18 18 16 Blood Pressure 114/78 120/87 98/68 L Pulse Oximetry 94 L 96 98 Intake & Output 06/13/18 06/14/18 06/14/18 18:59 06:59 18:59 Intake Total 100 / 100 Balance 100 / 100 Intake: IV 100 / 100 Levaquin 500 mg Premix Inj 500 100 / 100 mg In 100 ml @ 100 mls/hr IV. SIG Q24H [facility] Rx#:[id number] Other: # Voids 2 3 Narrative: GENERAL: This is a well-nourished, well-developed patient, in no apparent distress. CARDIOVASCULAR: Regular rate and rhythm RESPIRATORY: diminished RLL GASTROINTESTINAL: Abdomen soft, non-tender, nondistended. Normal active bowel sounds MUSCULOSKELETAL: Extremities without clubbing, cyanosis, or edema. NEURO: Alert & Oriented x4 to person, place, time, situation. Moves all ext x4 Results - Labs CBC & Chem 7: 06/13/18 11:50 06/13/18 11:50 Laboratory Results - last 24 hr 06/13/18 06/13/18 06/14/18 18:13 19:37 04:17 POC Glucose 147 H 228 H 164 H 06/14/18 06/14/18 08:08 12:13 POC Glucose 204 H 244 H Assessment and Plan - Plan CAD, CHF, Tachycardia, recent hypotension Reported CHF history in association with CAD; s/p defibrillator placement. BNP elevated >500. no obvious fluid questionable V-tach on telemetry 06/11 evening. -Cardiology (Dr. Oviedo) consulted -Will continue Furosemide , Coreg ; Entresto ( patient says that it may not be covered by his insurance but he will pay for it). -Aldactone was added by cardiology;however the patient with history of gynecomastia- therefore dc'ed. -will interrogate the ICD ( Dr. Bridges d/w 06/12). -patient declines ASA -passed the walk test. -f/u with cardiology as outpatient for heart transplant vs LVAD. - reports worsening exertional dyspnea - ordered 2 view CXR today - cardiology cleared patient for DC on 06/12 if CXR clear Hemoptysis - resolved Impression: hemoptysis x2 in patient > 50 yrs; family history of cancer but not known lung cancer. CHF as probable etiology -CT chest with possible pneumonia -continue with antibiotics. -Will continue to monitor DM uncontrolled. on home metformin. patient's associated extremity numbness and vision changes possibly DM related -started SS Novolog - added levemir while inpatient. -A1c 13.1 Urinary changes Impression: recent decreased urination; change in urine culture -UA ordered- UA with nitrates, mod leuk esterase, moderate bacteria -UC with e-coli -continue levaquin DVT PPX -chemical prophylaxis declined Discussed with supervising physician Dr. Del Cid
[2018-06-15] MEDS: Insulin NovoLOG Aspart Correctional Sugar Inj SQ SCH ×3 (03:25→12:29)
[2018-06-15 09:19] LABS: Baso # (Auto) 0.1 th/mm3 (0.0-0.2); Baso % (Auto) 0.9 % (0.0-2.0); Eos # (Auto) 0.4 th/mm3 (0.0-0.4); Eos % (Auto) 5.4 % (0.0-4.0); Hematocrit 46.9 % (39.0-51.0); Hemoglobin 15.6 gm/dL (13.0-17.0); Lymph # (Auto) 1.5 th/mm3 (1.0-4.8); Lymph % (Auto) 19.9 % (9.0-44.0); Mean Corpuscular HGB Conc 33.3 % (32.0-36.0); Mean Corpuscular Hemoglobin 29.6 pg (27.0-34.0); Mean Corpuscular Volume 88.9 fL (80.0-100.0); Mean Platelet Volume 7.6 fL (7.0-11.0); Mono # (Auto) 0.6 th/mm3 (0.0-0.9); Mono % (Auto) 8.2 % (0.0-8.0); Neut # (Auto) 4.8 th/mm3 (1.8-7.7); Neut % (Auto) 65.6 % (16.0-70.0); Platelet Count 308 th/mm3 (150-450); Red Blood Count 5.28 mil/mm3 (4.50-5.90); Red Cell Distribution Width 13.5 % (11.6-17.2); White Blood Count 7.3 th/mm3 (4.0-11.0)
[2018-06-15 09:44] LABS: Calcium 8.8 mg/dL (8.5-10.1); Potassium 4.2 meq/L (3.5-5.1)
--- NOTE | 2018-06-15 10:09 | XR ---
EXAM DATE: 06/15/2018 10:01 AM EDT AGE/SEX: 58 years / Male INDICATIONS: . Short of breath. CLINICAL DATA: This is the patient's subsequent encounter. Patient reports that signs and symptoms h ave been present for 1 week and indicates a pain score of 0/10. MEDICAL/SURGICAL HISTORY: . Diabetes mellitus type II. Hypertension. Carcinoma, breast. COPD. C ardiac disease. CHF. Coronary artery stent. Defibrillator. Bilateral mastectomy. COMPARISON: [facility] – [place], CHEST 1V SINGLE AP, 06/12/2018. . FINDINGS: Cardiomegaly. Clear lungs. Pacer/ICD device again seen from a left subclavian transvenous approach. O sseous structures are intact. CONCLUSION: Negative examination. Electronically signed by: Walter Monterroso MD 06/15/2018 10:08 AM EDT
[2018-06-15] MEDS: Aspirin 325 MG Tablet PO SCH (10:13)
[2018-06-15] MEDS: Furosemide 40 MG Tablet PO SCH (10:13)
[2018-06-15] MEDS: Senna/Docusate Sodium 8.6/50 MG Tablet PO SCH (10:13)
[2018-06-15 10:58] VITALS: RESP 16
--- NOTE | 2018-06-15 12:06 | P.DS ---
Date of admission: 06/09/18 13:51 Primary care physician: Tonya Dixon Attending physician on discharge: Liang Saleh Anticipated date of discharge: 06/15/18 Brief History from admission: Mr. Connelly is a 58 yo M with PMH of CAD (prior stenting in 2002), CHF ( reported EF 20% per patient; 40% in 2003 per EMR), defibrillator placement (by Dr. Oviedo for suspected malignant arrhythmia in 2017) who presents for concern for worsening heart failure. Patient reports acute onset of multiple symptoms ~2 days prior which concerned him, so he decided to fly to [facility] from where he lives in [place] to f/u with Dr. Oviedo due to history of cardiac treatment. Patient reports having had "blue lips", severe shortness of breath with ambulating several steps, and increased pallor for the past 2 days. Patient has also noticed acute weight gain of 10lbs sicne last week and has been urinating less. He has been coughing more and states he coughed up blood twice in the past several days. Patient also reports increased visual blurriness. Due to the rapid onset of these symptoms, patient stopped taking his home medications (lasix, tramadol, metformin, metoprolol, valsartan) since he has been hypotensive with SBP in 90's. Patient also reports increased symptoms over the past several months. He has averaged heart rate ~125bpm, has had increased blood glucose levels, and has had episodic chest pain which lasts for seconds at time. patient states that he has been incontinent with frequent urination prior to onset of decreased urination several days prior. He has also had chronic left foot and left thumb numbness. He has been sweating at night for years. Patient has been getting weekly testosterone injections for high estrogen levels. He states his glucose levels have been 300's+ for several months. Interval History: Patient arrived to ED with HR 130; otherwise stable vital signs. EKG demonstrated sinus tachycardia and QTC [address] changes. CXR, CBC , BMP unremarkable with exception of chemistry with hyperglycemia. troponin on admission wnl, BNP in 500's; subsequent ACS rule-out with troponins and EKG's reassuring. Patient initially admitted to chest pain center; seen by Dr. Rosa who recommended admission to hospitalist service with consultation of his [employer]. DS: Diagnosis - Discharge Diagnosis (1) H/O CHF Status: Acute (2) Ischemic cardiomyopathy Status: Chronic DS: Medications - Discharge Medications Prescriptions: tramadol 50 mg PO Q8HR PRN 3 Days #12 tab PRN Reason: Acute Pain DS: Summary Hospital Course: CAD, CHF, Tachycardia, recent hypotension Reported CHF history in association with CAD; s/p defibrillator placement. BNP elevated >500. no obvious fluid questionable V-tach on telemetry 06/11 evening. -Cardiology (Dr. Oviedo) consulted -Will continue Furosemide , Coreg ; Entresto ( patient says that it may not be covered by his insurance but he will pay for it). -Aldactone was added by cardiology;however the patient with history of gynecomastia- therefore dc'ed. -interrogate the AICD ( Dr. Bridges d/w 06/12). -patient declines ASA -passed the walk test. -f/u with cardiology as outpatient for heart transplant vs LVAD. - cardiology cleared patient for DC on 06/12 if CXR clear - 2 view CXR 06/15 reviewed negative exam Hemoptysis - resolved Impression: hemoptysis x2 in patient > 50 yrs; family history of cancer but not known lung cancer. CHF as probable etiology -CT chest with possible pneumonia -continue with antibiotics. -Will continue to monitor DM uncontrolled. on home metformin. patient's associated extremity numbness and vision changes possibly DM related -SS Novolog -A1c 13.1 Urinary changes Impression: recent decreased urination; change in urine culture -UA ordered- UA with nitrates, mod leuk esterase, moderate bacteria -UC with e-coli -completed levaquin DVT PPX -chemical prophylaxis declined Discussed with supervising physician Dr. Saleh - Time Spent with Patient Total time spent providing and/or coordinating discharge services: Greater than 30 minutes - Quality: VTE Deep Vein Thrombosis/Pulmonary Embolism Present on Admission: No Exam Vital signs: Vital Signs 06/14/18 16:00 06/14/18 20:00 06/15/18 00:00 Temperature 98.2 F 98 F 97.1 F L Pulse Rate 106 H 103 H 97 H Respiratory Rate 16 18 18 Blood Pressure 110/63 98/61 L 103/68 Pulse Oximetry 98 94 L 97 06/15/18 04:00 06/15/18 05:24 06/15/18 08:00 Temperature 97.5 F L 98.1 F Pulse Rate 87 90 93 H Respiratory Rate 18 16 Blood Pressure 107/72 112/75 Pulse Oximetry 97 96 Intake & Output 06/14/18 06/15/18 06/15/18 18:59 06:59 18:59 Intake Total 840 / 840 Balance 840 / 840 Weight 107.9 kg Intake: Oral 840 / 840 Other: # Voids 2 # Bowel Movements 0 Narrative: GENERAL: This is a well-nourished, well-developed patient, in no apparent distress. CARDIOVASCULAR: Regular rate and rhythm RESPIRATORY: clear through out GASTROINTESTINAL: Abdomen soft, non-tender, nondistended. Normal active bowel sounds MUSCULOSKELETAL: Extremities without clubbing, cyanosis, or edema. NEURO: Alert & Oriented x4 to person, place, time, situation. Moves all ext x4 Results Procedures completed during hospitalization: none Labs on day of discharge: Labs from last 24 hours 06/15/18 06/15/18 06/15/18 08:27 08:27 07:35 WBC 7.3 RBC 5.28 Hgb 15.6 Hct 46.9 MCV 88.9 MCH 29.6 MCHC 33.3 RDW 13.5 Plt Count 308 MPV 7.6 Neut % (Auto) 65.6 Lymph % (Auto) 19.9 Moore % (Auto) 8.2 H Eos % (Auto) 5.4 H Baso % (Auto) 0.9 Neut # (Auto) 4.8 Lymph # (Auto) 1.5 Moore # (Auto) 0.6 Eos # (Auto) 0.4 Baso # (Auto) 0.1 WBC Differential . Differential Comment Auto diff final Sodium 138 Potassium 4.2 Chloride 105 Carbon Dioxide 24.0 Anion Gap 9 BUN 12 Creatinine 1.23 Estimated GFR 60 L POC Glucose 158 H Random Glucose 169 H D Calcium 8.8 06/15/18 06/14/18 06/14/18 03:22 19:54 16:49 WBC RBC Hgb Hct MCV MCH MCHC RDW Plt Count MPV Neut % (Auto) Lymph % (Auto) Moore % (Auto) Eos % (Auto) Baso % (Auto) Neut # (Auto) Lymph # (Auto) Moore # (Auto) Eos # (Auto) Baso # (Auto) WBC Differential Differential Comment Sodium Potassium Chloride Carbon Dioxide Anion Gap BUN Creatinine Estimated GFR POC Glucose 146 H 302 H 112 H Random Glucose Calcium 06/14/18 12:13 WBC RBC Hgb Hct MCV MCH MCHC RDW Plt Count MPV Neut % (Auto) Lymph % (Auto) Moore % (Auto) Eos % (Auto) Baso % (Auto) Neut # (Auto) Lymph # (Auto) Moore # (Auto) Eos # (Auto) Baso # (Auto) WBC Differential Differential Comment Sodium Potassium Chloride Carbon Dioxide Anion Gap BUN Creatinine Estimated GFR POC Glucose 244 H Random Glucose Calcium - Impressions ITS Impressions Chest CT 06/10/18 00:00 CONCLUSION: Chest X-Ray 06/15/18 00:00 CONCLUSION: Negative examination. Discharge Plan - Discharge Disposition Patient Disposition: Discharge to SNF - Discharge Condition Condition: Stable - Discharge Order Discharge Orders: Discharge Order (Routine); Ordered 06/15/18 Ordered By: Verónica Dominique - Physicians Team Attending Provider: Liang Saleh Other Providers: [employer] ; Frederick Oviedo MD ; [facility]
[2018-06-15] MEDS: Levofloxacin 500 mg Premix Inj 500 MG/100 ML PIGGYBACK IV.SIG SCH (12:27)
[2018-06-15 13:23] VITALS: BP 103/65; PULSE 105; TEMP 97.8; O2SAT 95
== END 2018-06-15 16:02 ==
LOC: NEDA 00:02 → NEPC 00:02 → N04 19:22 → NEDA 19:28
PROVIDERS: ADMIT Family Medicine; ATTEND Family Medicine